=== PATIENT | male | born 1935 | race Caucasian/White ===

== ENCOUNTER 2017-08-23 16:13 | Emergency (ER) | payer MEDICARE ==
[2017-08-23 16:23] VITALS: BP 148/68
--- NOTE | 2017-08-23 17:44 | RAD ---
Indication: Cough, shortness of breath, for ductus cough. 2 views of the chest including dual energy PA views demonstrates no mediastinal shift. Tortuous descending aorta is noted. Pacemaker leads are in place. Lungs are clear. When compared to previous exam of March 07, 2017 no significant change is noted. IMPRESSION: Cardiomegaly. Pacemaker leads in place. No pneumonia is identified.
--- NOTE | 2017-08-23 18:05 | UC ---
Mono Galdamez Nilda, scribed for Chet Lin MD on 08/23/17 at 1641 . Respiratory Complaint HPI - HPI Summary HPI Summary: This patient is an 82 year old M presenting to [facility] [place] accompanied by daughter with a chief complaint of productive cough (galicia to clear currently, initially green) for the past 5-6 days. Symptoms aggravated and alleviated by nothing. Patient reports chest congestion, SOB, sore throat, and mild rhinorrhea. Patient denies edema and CP. On 08/16/17 pt states he had 2 coronary artery stents placed s/p SC. In the past, pt states he has Hx of PNA after having stents placed. Pt notes he currently has 21 stents in his heart. PMHx includes CHF, CAD, SC, and CA. Pt has a pacemaker. He is currently not on abx. - History of Current Complaint Chief Complaint: UCRespiratory Stated Complaint: COUGH Time Seen by Provider: 08/23/17 16:29 Hx Obtained From: Patient Onset/Duration: Sudden Onset, Lasting Weeks - 1 week, Still Present Timing: Constant Pain Intensity: 0 Pain Scale Used: 0-10 Numeric Character: Cough: Productive, Sputum Description: - galicia to clear Aggravating Factors: Nothing Alleviating Factors: Nothing Associated Signs And Symptoms: Negative: Edema - Allergies/Home Medications Allergies/Adverse Reactions: Allergies Allergy/AdvReac Type Severity Reaction Status Date / Time Ezetimibe [From Vytorin] Allergy Unknown Unknown Verified 08/23/17 16:23 Reaction Details Simvastatin [From Vytorin] Allergy Unknown Unknown Verified 08/23/17 16:23 Reaction Details BETA BLOCKERS AdvReac Severe Altered Uncoded 08/23/17 16:23 Mental Status PMH/Surg Hx/FS Hx/Imm Hx Cardiovascular History: Cardiac Disease, Myocardial Infarction, Congestive Heart Failure Respiratory History: Pneumonia Other History Of: Anticoagulant Therapy - Surgical History Surgical History: Yes Surgery Procedure, Year, and Place: 72 YRS AGO TONSILECTOMY, PYONATAL CYST IN SACRAL AREA 50 YRS AGO, QUAD BYPASS 15 YRS, 9 CARDIAC STENTS MOST RECENT 2011, , CARCINOMA FACIAL, VARIOUS DENTAL WORK, ENDOSCOPY BIOPSY FOR LYMPHNODES, . MULTIPLE BONE MARROW BIOPSIES. Coronary artery stents 2017 - Family History Known Family History: Positive: None - noncontributory - Social History Occupation: Retired Alcohol Use: None Substance Use Type: None Smoking Status (MU): Never Smoked Tobacco - Immunization History Most Recent Influenza Vaccination: 2017 Most Recent Tetanus Shot: unknown Most Recent Pneumonia Vaccination: 2017 Review of Systems ENT: Sore Throat, Nasal Discharge Respiratory: Shortness Of Breath, Cough, Other - chest congestion Cardiovascular: Other - negative CP Musculoskeletal: Other: - negative edema All Other Systems Reviewed And Are Negative: Yes Physical Exam Triage Information Reviewed: Yes Vital Signs: Initial Vital Signs Temp 97.5 F 08/23/17 16:15 Pulse 80 08/23/17 16:15 Resp 14 08/23/17 16:15 BP 148/68 08/23/17 16:15 Pulse Ox 98 08/23/17 16:15 Vital Signs Reviewed: Yes - Additional Comments General: well-appearing, no pain distress Skin: warm, color reflects adequate perfusion, dry Head: normal Eyes: EOMI, DAE ENT: normal Neck: supple, nontender Respiratory: CTA, breath sounds present Cardiovascular: RRR Abdomen: soft, nontender Bowel: present Musculoskeletal: normal, strength/ROM intact Neurological: normal, sensory/motor intact, A&O x3 Psychological: affect/mood appropriate Diagnostic Evaluation - Laboratory O2 Sat by Pulse Oximetry: 98 - Radiology Radiology Interpretation Completed By: Radiologist - CXR, per radiologist, reveals cardiomegaly. Pacemaker leads in place. No pneumonia identified. Dr. Lin has reviewed this radiology report. Respiratory Course/Dx - Course Course Of Treatment: Allergies noted. Medications reviewed. BP noted and advised to follow up with PCP. CXR, per radiologist, reveals cardiomegaly. Pacemaker leads in place. No pneumonia identified. Dr. Lin has reviewed this radiology report and agrees. PATIENT DENIES CHEST PAIN. DENIES THAT THESE SX ARE HEART RELATED AND DECLINES EKG. DISCUSSED GETTING FURTHER CARE IN THE ED IF NOT IMPROVED OR WORSE. F/U PMD; GO TO ED IF WORSE. - Differential Dx/Diagnosis Provider Diagnoses: BRONCHITIS. Elevated blood pressure without history of hypertension. Discharge - Discharge Plan Condition: Stable Disposition: HOME Prescriptions: Azithromyxin QUANG (NF) [Z-Quang (Zithromax) 250 mg tabs #6] 2 tab PO .TODAY, THEN 1 DAILY #6 tab Patient Education Materials: Acute Bronchitis (ED) Referrals: Steve Cedeño MD [Primary Care Provider] - Additional Instructions: Your blood pressure was elevated during todays visit; please follow up with your primary care provider within a week for further evaluation. FOLLOW UP WITH YOUR DOCTOR. GO TO THE EMERGENCY DEPARTMENT FOR ANY WORSENING OF YOUR CONDITION; CHEST PAIN, SHORTNESS OF BREATH, YOU FEEL ILL OR QUESTIONS OR CONCERNS. The documentation as recorded by the Mono altamirano Nilda accurately reflects the service I personally performed and the decisions made by me, Chet Lin MD.
== END 2017-08-23 17:40 | disposition home or self-care (01) ==
LOC: UCEAST 16:13
DX: J40 Bronchitis, not specified as acute or chronic (principal); R03.0 Elevated blood-pressure reading, without diagnosis of hypertension; Z88.8 Allergy status to other drugs, medicaments and biological substances; Z87.01 Personal history of pneumonia (recurrent)
CPT/HCPCS: 71046; 99212; G0463

== ENCOUNTER 2017-10-14 00:31 | Inpatient (IN) | payer MEDICARE ==
[2017-10-14] MEDS ORDERED: Morphine INJ* 4 MG/ML 1 ML SYRINGE (NEW SYRINGE VERSION) ONE (00:46)
[2017-10-14] MEDS ORDERED: Ondansetron INJ* 2 MG/ML VIAL ONE (00:47)
[2017-10-14] MEDS ORDERED: Ondansetron INJ* 2 MG/ML VIAL IV ONE (00:47)
[2017-10-14] MEDS ORDERED: Morphine INJ* 4 MG/ML 1 ML SYRINGE (NEW SYRINGE VERSION) IV ONE ×3 (00:47→01:14)
[2017-10-14 01:03] LABS: ABS Basophils 0 10^3/ul (0-0.2); ABS Eosinophils 0.3 10^3/ul (0-0.6); ABS Lymphocytes 4.8 10^3/ul (1.0-4.8); ABS Monocytes 1.1 10^3/ul (0-0.8); ABS Neutrophils 4.5 10^3/ul (1.5-7.7); ABS Nucleated RBC 0 10^3/ul; Eosinophil % 3.1 % (0-6); Hematocrit 50 % (42-52); Hemoglobin 16.6 g/dl (14.0-18.0); Lymphocyte % 44.6 % (25-47); Mean Corpuscular HGB Conc 33 g/dl (31-36); Mean Corpuscular Hemoglobin 30 pg (27-31); Mean Corpuscular Volume 89 fL (80-94); Mean Platelet Volume 9 um3 (7.4-10.4); Nucleated Red Blood Cells % 0.1; Platelet Count 243 10^3/ul (150-450); Red Blood Count 5.59 10^6/ul (4.0-5.4); Red Cell Distribution Width 17 % (10.5-15); White Blood Count 10.7 10^3/ul (3.5-10.8)
[2017-10-14 01:12] LABS: INR 0.87 (0.77-1.02)
[2017-10-14 01:15] LABS: EGFR Non-African American 31.4 (>60)
--- NOTE | 2017-10-14 01:51 | ED ---
Cailin Galdamez Gabriel, scribed for Alexandr Wick MD on 10/14/17 at 0053 . HPI Chest Pain - HPI Summary HPI Summary: This patient is a 82 year old M presenting to [facility] [place] accompanied by his with a chief complaint of CP that began 45 minutes ago. The patient rates the pain 10/10 in severity and radiating into his right shoulder. Patient reports nausea. Patient denies diaphoresis. Pt has had multiple MIs and states this feels like one. Last WA was 2 months ago. He took NTG and ASA MILLWRIGHT. Has pacer. - History of Current Complaint Chief Complaint: EDChestPainROMI Time Seen by Provider: 10/14/17 00:34 Hx Obtained From: Patient Onset/Duration: Still Present Timing: Constant Initial Severity: Moderate Current Severity: Moderate Pain Intensity: 5 Pain Scale Used: 0-10 Numeric Chest Pain Location: Mid Sternal Chest Pain Radiates: Yes Chest Pain Radiates To:: Shoulder Associated Signs and Symptoms: Positive: Negative - diaphoresis, Other: - nausea - Additional Pertinent History Primary Care Physician: GUME - Allergy/Home Medications Allergies/Adverse Reactions: Allergies Allergy/AdvReac Type Severity Reaction Status Date / Time ezetimibe [From Vytorin] Allergy Unknown Verified 10/14/17 01:42 Reaction Details simvastatin [From Vytorin] Allergy Unknown Verified 10/14/17 01:42 Reaction Details BETA BLOCKERS AdvReac Severe Altered Uncoded 08/23/17 16:23 Mental Status PMH/Surg Hx/FS Hx/Imm Hx Endocrine/Hematology History: Reports: Hx Anticoagulant Therapy, Hx Blood Disorders - lymphoma, Hx Blood Transfusions Denies: Hx Diabetes Comment Only: Other Endocrine/Hematological Disorders - polycythemia Cardiovascular History: Reports: Hx Angina, Hx Angioplasty, Hx Auto Implanted Cardiovert Defib, Hx Congestive Heart Failure, Hx Coronary Artery Disease, Hx Hypercholesterolemia, Hx Hypertension, Hx Myocardial Infarction, Hx Pacemaker/ ICD - 2011, Other Cardiovascular Problems/Disorders - LYMPHOMA Denies: Hx Valvular Heart Disease Respiratory History: Reports: Hx Pneumonia, Hx Sleep Apnea Denies: Hx Chronic Obstructive Pulmonary Disease (COPD) Comment Only: Hx Asthma - lymphoma x 22 yrs History: Reports: Hx Acute Renal Failure Denies: Hx Kidney Stones Musculoskeletal History: Reports: Hx Gout, Other Musculoskeletal History - AFTER STENT 4 YRS AGO HE DEVELOPED SEPTOCEMIA AND A PELVIC ABSCESS Denies: Hx Arthritis, Hx Osteoporosis Sensory History: Reports: Hx Contacts or Glasses Denies: Hx Eye Prosthesis, Hx Glaucoma, Hx Legally Blind, Hx Macular Degeneration, Hx Hearing Aid, Hx Hearing Problem Opthamlomology History: Reports: Hx Contacts or Glasses Denies: Hx Eye Prosthesis, Hx Glaucoma, Hx Legally Blind, Hx Macular Degeneration Neurological History: Reports: Other Neuro Impairments/Disorders - Tremors Psychiatric History: Reports: Hx Depression Denies: Hx Panic Disorder - Cancer History Cancer Type, Location and Year: Lymphoma (2) Hx Chemotherapy: Yes - Surgical History Surgery Procedure, Year, and Place: 70 YRS AGO TONSILECTOMY, PYONATAL CYST IN SACRAL AREA 50 YRS AGO, QUAD BYPASS 15 YRS, 9 CARDIAC STENTS MOST RECENT 2011, , CARCINOMA FACIAL, VARIOUS DENTAL WORK, ENDOSCOPY BIOPSY FOR LYMPHNODES, . MULTIPLE BONE MARROW BIOPSIES. Coronary artery stents 2018 Hx Anesthesia Reactions: No - Immunization History Date of Tetanus Vaccine: up to date Date of Influenza Vaccine: Fall 2012 Infectious Disease History: No Infectious Disease History: Reports: Hx Shingles, History Other Infectious Disease Denies: Hx Clostridium Difficile, Hx Hepatitis, Hx Human Immunodeficiency Virus (HIV), Hx Tuberculosis, Hx Known/Suspected VRE, Hx Known/Suspected VRSA, Traveled Outside the [place] in Last 30 Days - Family History Known Family History: Positive: None - noncontributory - Social History Alcohol Use: None Substance Use Type: Reports: None Hx Tobacco Use: No Smoking Status (MU): Never Smoked Tobacco Review of Systems Negative: Skin Diaphoresis Positive: Chest Pain Positive: Nausea All Other Systems Reviewed And Are Negative: Yes Physical Exam - Summary Physical Exam Summary: VITAL SIGNS: Reviewed. GENERAL: Patient is a well-developed and nourished male who is lying anxious in the stretcher. Patient is not in any acute respiratory distress. HEAD AND FACE: No signs of trauma. No ecchymosis, hematomas or skull depressions. No sinus tenderness. EYES: PERRLA, EOMI x 2, No injected conjunctiva, no nystagmus. EARS: Hearing grossly intact. Ear canals and tympanic membranes are within normal limits. MOUTH: Oropharynx within normal limits. NECK: Supple, trachea is midline, no adenopathy, no JVD, no carotid bruit, no c- spine tenderness, neck with full ROM. CHEST: Symmetric, no tenderness at palpation LUNGS: Clear to auscultation bilaterally. No wheezing or crackles. CVS: Regular rate and rhythm, S1 and S2 present, no murmurs or gallops appreciated. ABDOMEN: Soft, non-tender. ABD is distended No rebound no guarding, and no masses palpated. Bowel sounds are normal. EXTREMITIES: FROM in all major joints, no edema, no cyanosis or clubbing. NEURO: Alert and oriented x 3. No acute neurological deficits. Speech is normal and follows commands. SKIN: Dry and warm Triage Information Reviewed: Yes Vital Signs On Initial Exam: Initial Vitals Temp Pulse Resp BP Pulse Ox 97.4 F 42 18 152/90 99 10/14/17 00:35 10/14/17 00:35 10/14/17 00:35 10/14/17 00:35 10/14/17 00:35 Vital Signs Reviewed: Yes Diagnostics - Vital Signs Vital Signs Temp Pulse Resp BP Pulse Ox 10/14/17 00:49 16 10/14/17 00:35 97.4 F 42 18 152/90 99 - Laboratory Result Diagrams: 10/14/17 00:37 10/14/17 00:37 Lab Statement: Any lab studies that have been ordered have been reviewed, and results considered in the medical decision making process. - Radiology CXR Radiology Interpretation Completed By: ED Physician - no acute process - EKG 0042 Cardiac Rate: Other Rate EKG Rhythm: Sinus Rhythm - paced at 72 BPM EKG Interpretation: Paced Chest Pain Course/Dx - Course Assessment/Plan: This patient is a 82 year old M presenting to [facility] accompanied by his with a chief complaint of CP that began 45 minutes ago. The patient rates the pain 10/10 in severity and radiating into his right shoulder. Patient reports nausea. Patient denies diaphoresis. Pt has had multiple MIs and states this feels like one. Last WA was 2 months ago. He took NTG and ASA MILLWRIGHT. Has pacer. An EKG reveals paced at 79 BPM. CXR reveals, no acute process. Test results with no significant abnormalities except for a lactic acid of 2.5. In the ED course the patient was given morphine and zofran. Dx chest pain. We discussed patient care with Dr. Goldberg and they accepted the patient for admission. Patient will be admitted. The patient is agreeable with this plan. - Diagnoses Provider Diagnoses: Chest pain - Provider Notifications Discussed Care Of Patient With: Diana Goldberg Time Discussed With Above Provider: 01:30 Instructed by Provider To: Admit As Inpatient Discharge - Discharge Plan Condition: Fair Disposition: ADMITTED TO [facility] Referrals: Steve Cedeño MD [Primary Care Provider] - The documentation as recorded by the Cailin altamirano Gabriel accurately reflects the service I personally performed and the decisions made by me, Alexandr Wick MD.
[2017-10-14] MEDS ORDERED: Morphine INJ** 4 MG/ML 1 ML CARPUJECT IV PRN (04:12)
--- NOTE | 2017-10-14 07:40 | RAD ---
HISTORY: Chest pain COMPARISONS: August 23, 2017 VIEWS: 1: frontal portable view of the chest at 1:00 AM FINDINGS: LINES AND TUBES: A left-sided AICD pacemaker is noted. CARDIOMEDIASTINAL SILHOUETTE: The cardiac silhouette is enlarged. The cardiomediastinal silhouette is otherwise normal for portable technique. PLEURA: The costophrenic angles are sharp. No pleural abnormalities are noted. LUNG PARENCHYMA: The lungs are clear. ABDOMEN: The upper abdomen is clear. There is no subphrenic gas. BONES AND SOFT TISSUES: Surgical clips are noted in the mediastinum. The patient is status post median sternotomy. IMPRESSION: CARDIOMEGALY
[2017-10-14] MEDS ORDERED: Atorvastatin* 20 MG TAB PO SCH (09:00)
[2017-10-14] MEDS ORDERED: CMCS - Epleronone (NF) 25 MG TAB PO SCH (09:00)
[2017-10-14] MEDS: Nitroglycerin 0.6 MG/HR PATCH* (15 MG) TRANSDERM SCH (09:04)
[2017-10-14] MEDS: Diltiazem CD CAP* 240 MG PO SCH (09:04)
[2017-10-14] MEDS: Clopidogrel TAB* 75 MG PO SCH (09:04)
[2017-10-14] MEDS: Apixaban* 2.5 MG TAB PO SCH ×2 (09:04→20:12)
--- NOTE | 2017-10-14 10:24 | PN ---
Subjective Date of Service: 10/14/17 Interval History: Patient seen and examined at bedside. Denies fever, chills, shortness of breath , chest discomfort (above baseline), N/V/D. Pt states that at baseline he has a slight chest discomfort at all times. Tele: Paced, rate 80's. Few PVCs noted. Family History: Unchanged from Admission Social History: Unchanged from Admission Past Medical History: Unchanged from Admission Objective Active Medications: Apixaban (Eliquis) 2.5 mg PO BID [facility] Atorvastatin Calcium (Lipitor*) 20 mg PO BEDTIME BASHIR Clopidogrel Bisulfate (Plavix Tab*) 75 mg PO DAILY BASHIR Diltiazem HCl (Cardizem Cd Cap*) 120 mg PO BEDTIME BASHIR Diltiazem HCl (Cardizem Cd Cap*) 240 mg PO QAM BASHIR Eplerenone (Inspra (Nf)) 12.5 mg PO Q48H BASHIR Morphine Sulfate (Morphine Inj (Syringe)*) 4 mg IV Q4H PRN Reason: PAIN Nitroglycerin (Nitroglycerin Tab 0.4 Mg*) 0.4 mg SL Q5M PRN Reason: CHEST PAIN Nitroglycerin (Nitroglycerin 15 Mg Patch*) 1 patch TRANSDERM DAILY [facility] Vital Signs - 8 hr 10/14/17 10/14/17 10/14/17 02:30 02:34 07:19 Temperature 97.6 F 97.5 F Pulse Rate 78 81 88 Respiratory 11 18 16 Rate Blood Pressure 153/82 134/92 155/92 (mmHg) O2 Sat by Pulse 97 99 100 Oximetry 10/14/17 08:00 Temperature Pulse Rate Respiratory 16 Rate Blood Pressure (mmHg) O2 Sat by Pulse Oximetry Oxygen Devices in Use Now: None Appearance: NAD, sitting up on the side of the bed Ears/Nose/Mouth/Throat: Mucous Membranes Moist Respiratory: Symmetrical Chest Expansion and Respiratory Effort, Clear to Auscultation Cardiovascular: NL Sounds; No Murmurs; No JVD, RRR Abdominal: NL Sounds; No Tenderness; No Distention Skin: - - 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 - Patient Problems (1) Chest pain Code(s): R07.9 - CHEST PAIN, UNSPECIFIED SNOMED Code(s): 55783829 Comment: - At baseline Pt reports a 2/10 chest discomfort - Pt with significant cardiac history - Troponin 0.03, 0.07, 0.19 - Continue to trend tropionin until peak - Cardiology consult, input appreciated - Plan for chemical nuclear stress test (2) Atrial fibrillation Code(s): I48.91 - UNSPECIFIED ATRIAL FIBRILLATION SNOMED Code(s): 05557826 Comment: - Paced - Continue diltiazem and eliquis (3) CKD (chronic kidney disease) stage 3, GFR 30-59 ml/min Code(s): N18.3 - CHRONIC KIDNEY DISEASE, STAGE 3 (MODERATE) SNOMED Code(s): 550241452 Comment: - Suspect Pt is at baseline (4) HTN (hypertension) Code(s): I10 - ESSENTIAL (PRIMARY) HYPERTENSION SNOMED Code(s): 41738180 Comment: - SBP 130-160's - Continue cardizem (5) Hx of cardiac pacemaker Code(s): Z95.0 - PRESENCE OF CARDIAC PACEMAKER SNOMED Code(s): 967150952 (6) Hx of congestive heart failure Code(s): Z86.79 - PERSONAL HISTORY OF OTHER DISEASES OF THE CIRCULATORY SYSTEM SNOMED Code(s): 125329190 Comment: - History ischemic cardiomyopathy - Strict I+O's and daily weights (7) Hx of coronary artery disease Code(s): Z86.79 - PERSONAL HISTORY OF OTHER DISEASES OF THE CIRCULATORY SYSTEM SNOMED Code(s): 006233604 Comment: - Pt with a beta dayday alergy and not on a beta dayday - Continue statin and plavix (8) Hx of gout Code(s): Z87.39 - PERSONAL HISTORY OF DISEASES OF THE MS SYS AND CONN TISS SNOMED Code(s): 863748221 (9) Hx of peripheral vascular disease Code(s): Z86.79 - PERSONAL HISTORY OF OTHER DISEASES OF THE CIRCULATORY SYSTEM SNOMED Code(s): 523120464 Comment: - Continue plavix (10) Hx of polycythemia vera Code(s): Z86.2 - PRSNL HISTORY OF DIS [facility] BLD[facility] Code(s): 583809725 Comment: - History (11) Lymphoma Comment: - History (12) DVT prophylaxis Code(s): NUD2577 - SNOMED Code(s): 146885949 Comment: - Claraquis (13) DNR (do not resuscitate) Status and Disposition: OBV. Discharge to home when medically stable, possibly in the AM.
[2017-10-14] MEDS ORDERED: Regadenoson* 0.4 MG/5 ML SYRINGE ONE (11:39)
[2017-10-14] MEDS ORDERED: Aminophylline IV* 25 MG/ML 10 ML VIAL ONE (11:39)
--- NOTE | 2017-10-14 14:42 | HP ---
CC: Dr. Cedeño; Dr. Benjamin. HISTORY AND PHYSICAL: DATE OF ADMISSION: 10/14/17 PRIMARY CARE PROVIDER: Dr. Cedeño. SOCIAL ECONOMIST: Dr. Benjamin. CHIEF COMPLAINT: Chest pain. 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 The patient states in general, he is never completely free of chest discomfort. He typically has a pressure sensation that he describes as a 1 or 2/10. He states this evening at approximately 10:30 p.m., he took his nitroglycerin patch off. At approximately 11:30 p.m., he had sudden onset of much worse chest discomfort. Again, this is a pressure sensation. He took a sublingual nitroglycer in and had increased discomfort. Therefore, took a second sublingual nitroglycerin, continued to hav e increased discomfort, took a baby aspirin and sat down and rested for a little bit of time, however , as the pain did not subside and in fact, continued to worsen, he decided to present to the emergenc y room for evaluation. He does state that the discomfort also radiated down his left arm and he had associated nausea. Typically, the patient will walk 1/2 to 1 mile daily for cardiac rehab. He has be en doing this without any difficulty after having what sounds to be an NH that was aborted relatively quickly with stent placement in August 2017 while visiting his daughter in [facility]. He st ates at that time, he had awakened from sleep with very severe chest pain, had vomiting, went to the emergency room was found to have coronary artery disease requiring stenting. He had 2 stents placed to his LAD. He states in general, he has been feeling decent since then. PAST MEDICAL HISTORY: 1. Coronary artery disease status post CABG approximately 20 years ago and [place] bsequently 21 stent insertions. 2. AFib. 3. Gout. 4. Peripheral vascular disease. 5. Polycythemia vera. 6. Lymphoma x2. 7. Hypertension. 8. Ischemic cardiomyopathy. 9. Stage 3 chronic kidney disease. PAST SURGICAL HISTORY: Permanent pacemaker insertion. ALLERGIES: VYTORIN and BETA BLOCKERS. FAMILY HISTORY: Mom at the age of 96 with dementia; Dad is , he had coronary disease. The patient has 2 brothers, one of which is with coronary disease, the other is living. He has had a protracted course of requiring numerous stents and bypass surgery. SOCIAL HISTORY: The patient is a nonsmoker. He drinks alcohol rarely. 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 He is . He had 4 children. A son this past summer, he had throat cancer. REVIEW OF SYSTEMS: A complete 11-system review of systems is obtained. Pertinent positive and negat trey are as per HPI and otherwise negative. PHYSICAL EXAMINATION GENERAL: The patient is a well-developed elderly male, sitting at the stretcher, in no acute distres s. VITAL SIGNS: Blood pressure 143/78, pulse 76, respirations 16, temp 97.4, O2 sat 99% on 2 L. HEENT: Pupils are equal and round. Extraocular muscles are intact. Oropharynx is clear. Oral muco sa is moist. The patient wears dentures. There is no submandibular, cervical or supraclavicular adair nopathy. Thyroid is not enlarged. No thyroid nodules are noted. PULMONARY: Lungs are clear to auscultation bilaterally. CARDIAC: Normal S1 and S2. Regular rate and rhythm. I do not appreciate any murmurs. There is tra ce bilateral lower extremity pitting edema. ABDOMEN: Bowel sounds are present. Abdomen is soft, nontender, nondistended. MUSCULOSKELETAL: There is no cyanosis or clubbing of the digits. There is full active range of nathaly on of all 4 extremities. NEURO: Cranial nerves II through XII are grossly intact. Sensation is intact to light touch through out. Strength is 5/5 and symmetric, both upper and lower extremities bilaterally. SKIN: Warm and dry. There are no rashes. The patient does have approximately a 1 x 1 x 1 cm ulcera [place] lesion on the lobe of the left ear. This is consistent with his non squamous cell carcinoma. 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 PSYCH: The patient is alert. He is oriented x3. Affect appears appropriate. DIAGNOSTIC STUDIES/LAB DATA: WBC 10.7, hemoglobin 16.6, hematocrit 50, platelets 243,000. INR is 0 .87. Sodium 136, potassium 3.9, chloride 98, CO2 26, BUN 42, creatinine 2.05, glucose 156, lactic ac id 2.5, calcium 9.9, magnesium 2.4. Bilirubin 0.7, AST 20, ALT 15, alk phos 65. Troponin 0.03. BNP 287. Albumin 4.4. EKG reveals an AV paced rhythm. Chest x-ray to my evaluation reveals enlarged cardiac silhouette, otherwise lungs are clear. 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 1. Given the patient's extensive cardiac history, he will be admitted to be ruled out for acute autumn nary syndrome. The patient's initial troponin is normal at 0.03. Follow up troponin will be obtained at 0400 and again at 0700. I will not repeat EKGs as he is in a paced rhythm. Before proceeding wi th stress test or further cardiac catheterization, Cardiology consultation, I believe should be reque sted given his very complicated medical history. The patient did just see Dr. Benjamin in the clinic a pproximately 2 weeks ago. At that time, he was doing quite well. He will continue on his Crestor an d Plavix. 2. Ischemic cardiomyopathy. The patient is slightly edematous in his lower extremities. He states that it is a little bit more than his baseline. He did take some torsemide last week at the recommen dation of Dr. Benjamin. He states he dropped approximately 3 pounds. We will monitor his fluid status . 3. Atrial fibrillation. The patient is paced. We will continue diltiazem CD 240 mg q. a.m. and 120 mg p.o. q. p.m. as well as Eliquis 2.5 mg twice daily. 4. Hypertension. Dr. Lou's blood pressure is moderately elevated at this point. For now, I naya l monitor this. However, if his blood pressure remains elevated an adjustment may be necessary in hi s antihypertensive regimen. 5. DVT prophylaxis. According to the Adult Thrombosis Prophylaxis Risk Factor Assessment Guide, the patient has a total risk factor score of 5 making him high risk. He is already on Eliquis and this will act as his DVT prophylaxis. 6. Code status. The patient states that this is a difficult decision for him. He states that he wo uld not want to be intubated if cardiac resuscitation got to that point, however, he is aware that hi s 's wishes are that all resuscitation efforts be performed. He states that he believes she woul d be quite upset, if resuscitation was not performed. At this point, the patient is agreeing to full code to the point of potentially needing intubation. At that point, we will have to discuss with th e patient's what to do further. TIME SPENT: 65 minutes was spent admitting this patient. [id number]/[facility] #: [id number]
[2017-10-14] MEDS: Atorvastatin* 20 MG TAB PO SCH (20:12)
[2017-10-14] MEDS ORDERED: Diltiazem CD CAP* 120 MG PO SCH (21:00)
--- NOTE | 2017-10-14 22:59 | CONS ---
CC: Dr. Benjamin; Dr. Cedeño * CARDIOLOGY CONSULTATION REPORT: DATE OF CONSULT: 10/14/17 INDICATION FOR CONSULT: Acute coronary syndrome. HISTORY OF PRESENT ILLNESS: The patient is an 82-year-old gentleman with an extensive history of ischemic cardiomyopathy. The patient has had coronary bypass surgery. He has had multiple stents put in, at least 20 stents put in. His last stent implantation was on 08/18/17, this was an acute coronary syndrome , down in [facility]. He went to [facility]. At that time, a cardiac catheterization demonstrated the GOMEZ to his LAD was open and patent. He had diffuse disease to his distal LAD. His [place] right coronary artery had multiple stents. He had in-stent restenosis both to the mid RCA stent and to the PDA stent. His saphenous vein grafts were not injected as they were known to be occluded. His circumflex artery was occluded in mid vessel with OM1 and OM2 partially filling from collaterals. At that time , he had 2 stents placed to his right coronary artery. He had a 2.5 x 18 mm Resolute stent to his PDA and a 3 mm x 22 mm Resolute stent to his mid right coronary artery. The patient was doing well up until Friday when he had onset of chest discomfort. He took a nitroglycerin and had no relief of his discomfort. He had a second nitroglycerin and again his discomfort did not relieve and at that time he decided to come to the emergency room. On arrival to the emergency room, the patient got more sublingual nitroglycerin and morphine and ultimately became pain free. The patient's EKG shows normal sinus rhythm and ventricularly paced. Thus for his coronary status as initial troponin level was 0.07. There is peak troponin at 0.25. In speaking with the patient today, he is pain free. PAST MEDICAL HISTORY: Significant for ischemic cardiomyopathy, history of coronary bypass surgery, multiple stents, history of pacemaker implantation, subsequently upgraded to an ICD. OUTPATIENT MEDICATIONS: 1. Crestor 10 mg a day. 2. Eplerenone 12.5 mg a day. 3. Nitroglycerin patch 0.6 mg an hour every 12 hours. 4. Cardizem CD 120 mg 2 tablets in the morning and 1 tablet at night. 5. Plavix 75 mg a day. 6. Demadex 10 mg a day. 7. Eliquis 2.5 mg b.i.d. ALLERGIES: He is intolerant of beta blockers, Vytorin, Zetia, Colace, and lisinopril. 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 He denies tobacco or alcohol use. PHYSICAL EXAM: Height is 5 feet 8 inches, weight is 184 pounds. Temperature 97.4, heart rate 76, respiratory rate is 16, oxygen saturation 99% on room air, blood pressure 134/92. Sclerae anicteric. Oropharynx is pink without erythema. Carotids are 2+ without bruits. JVD is normal. Thyroid is normal. Cardiac Exam: S1, S2 without any murmurs, rubs, or gallops. PMI is difficult to assess. Lungs are clear to auscultation bilaterally. There is no dullness to percussion. Abdomen is soft, nontender, nondistended with normoactive bowel sounds. Extremities show no edema. He has 2+ pulses throughout. The patient is awake, alert, and oriented. He moves all 4 extremities equally. DIAGNOSTIC STUDIES/LAB DATA: Chemistries within normal limits. BUN 42, creatinine 2.5, which is about at his baseline. AST and ALT are normal. Troponin as described above. CBC: White count 10.5, hemoglobin 16, hematocrit 50, platelet count 243. EKG shows normal sinus rhythm, ventricularly paced. IMPRESSION AND PLAN: This is an 82-year-old gentleman with an extensive cardiac history, who came to the hospital because of chest pain that was not relieved with sublingual nitroglycerin. Ultimately, in the emergency room, he had sublingual nitroglycerin and morphine and became pain free. The patient does show a mild elevation of troponin level at 0.25. For now, I think the patient should continue on his medications. The patient is already on maximum medications. The patient is on aspirin and Plavix. The patient will undergo a chemical nuclear stress test to see if there are any obvious areas of ischemia that correlates with his known coronary anatomy. Otherwise, the patient will continue to follow up as an outpatient with Dr. Benjamin. Further recommendations pending results of the stress test. [id number]/[facility] #: [id number] [facility]ENTERFer
[2017-10-15] MEDS: Nitroglycerin TAB 0.4 MG* 0.4 MG TAB SL PRN ×3 (06:18→21:21)
[2017-10-15] MEDS: Diltiazem CD CAP* 240 MG PO SCH (08:32)
[2017-10-15] MEDS: Nitroglycerin 0.6 MG/HR PATCH* (15 MG) TRANSDERM SCH (08:32)
[2017-10-15] MEDS: Apixaban* 2.5 MG TAB PO SCH ×2 (08:32→20:55)
[2017-10-15] MEDS: Clopidogrel TAB* 75 MG PO SCH (08:32)
[2017-10-15] MEDS ORDERED: CMCS - Epleronone (NF) 25 MG TAB PO SCH (09:00)
--- NOTE | 2017-10-15 10:27 | RAD ---
Edited for charges. INDICATION: Chest pain. Elevated troponin. Prior angioplasty. COMPARISON: October 05, 2013 TECHNIQUE: October 15, 2017, 25.980 mCi of Tc-99m Myoview were administered IV. SPECT images of the heart were obtained. No gated images could be obtained at rest due to arrhythmia. October 14, 2017. Under the direction of Dr. Benjamin, the patient was given an IV injection of a pharmacologic stress agent. Subsequently, the patient was given an IV injection of 25.710 mCi Tc-99m Myoview. SPECT images of the heart were obtained and a gated wall motion study was performed. FINDINGS: Gated wall motion images were obtained at stress and demonstrate global marked hypokinesia. The calculated left ventricular ejection fraction is 25 % at stress. Estimated LEFT ventricular end diastolic volume is 158 mL at stress. TID 0.95. Predominant fixed perfusion defect centered at the lateral wall extending from the apex to the base with less marked involvement of the anterior wall. The stress defect is larger than the rest defect consistent with a small surrounding penumbra of stress- induced ischemia. IMPRESSION: 1. Large lateral and anterior wall infarct significantly enlarged over the 2014 exam with small surrounding penumbra of ischemia. 2. Severe global hypokinesia and markedly abnormal estimated LEFT ventricular ejection fraction of 25% with interval worsening. Dilated LEFT ventricle with interval worsening. ASSESSMENT: High risk based on nuclear portion. Based on imaging criteria from ACC/AHA 2002 Guideline Update for the Management of Patients With Chronic Stable Angina Table 23. Noninvasive Risk Stratification. MTDD
[2017-10-15 11:21] LABS: EGFR Non-African American 31.1 (>60)
--- NOTE | 2017-10-15 13:25 | PN ---
Subjective Date of Service: 10/15/17 Interval History: Patient seen and examined at bedside. Denies fever, chills, shortness of breath , N/V/D. Pt states that at baseline he has a mild upper sternal chest discomfort. Earlier today at ~ 0930 he reports a right upper chest discomfort that radiated to his right shoulder, he states this is similar to the pain the caused in to present to the hospital and similar to the pain he has prior to his last stenting in 08/2017, except today's pain was not as significant as then. Tele: Paced, rate 80-90's. Pt noted to have 2 episodes of v tach today, 1 ~ 0844 (this was ~ 4 beats) and another that was ~ 24 beats around 1030. Family History: Unchanged from Admission Social History: Unchanged from Admission Past Medical History: Unchanged from Admission Objective Active Medications: Apixaban (Eliquis) 2.5 mg PO BID BASHIR Atorvastatin Calcium (Lipitor*) 20 mg PO BEDTIME BASHIR Clopidogrel Bisulfate (Plavix Tab*) 75 mg PO DAILY BASHIR Diltiazem HCl (Cardizem Cd Cap*) 120 mg PO BEDTIME BASHIR Diltiazem HCl (Cardizem Cd Cap*) 240 mg PO QAM BASHIR Eplerenone (Inspra (Nf)) 12.5 mg PO Q48H BASHIR Morphine Sulfate (Morphine Inj (Syringe)*) 4 mg IV Q4H PRN Reason: PAIN Nitroglycerin (Nitroglycerin Tab 0.4 Mg*) 0.4 mg SL Q5M PRN Reason: CHEST PAIN Nitroglycerin (Nitroglycerin 15 Mg Patch*) 1 patch TRANSDERM DAILY [facility] Vital Signs - 8 hr 10/15/17 10/15/17 10/15/17 07:26 11:07 11:49 Temperature 97.9 F 98.1 F 97.5 F Pulse Rate 91 88 95 Respiratory 16 18 16 Rate Blood Pressure 144/83 147/89 137/81 (mmHg) O2 Sat by Pulse 100 95 97 Oximetry Oxygen Devices in Use Now: None Appearance: NAD, sitting up in a chair Ears/Nose/Mouth/Throat: Mucous Membranes Moist Respiratory: Symmetrical Chest Expansion and Respiratory Effort, Clear to Auscultation Cardiovascular: NL Sounds; No Murmurs; No JVD, RRR Abdominal: NL Sounds; No Tenderness; No Distention Extremities: No Edema Skin: - - SC ca to left ear lobe, sutures intact and open to air left upper ear lobe and sc ca lesion to left forearm Neurological: Alert and Oriented x 3, NL Muscle Strength and Tone Lines/Tubes/Other Access: Clean, Dry and Intact Peripheral IV - site benign Nutrition: Taking PO's Result Diagrams: 10/14/17 00:37 10/15/17 10:57 Additional Lab and Data: Laboratory Tests 10/14/17 10/14/17 10/14/17 00:37 04:00 07:16 Troponin I 0.03 0.07 H* 0.19 H* Laboratory Tests 10/14/17 10/14/17 10:28 13:44 Troponin I 0.25 H* 0.22 H* Diagnostic Imagin10/16/17 NM MYOCARDIAL MULTI RESTING IMPRESSION: 1. Large lateral and anterior wall infarct significantly enlarged over the 2014 exam with small surrounding penumbra of ischemia. 2. Severe global hypokinesia and markedly abnormal estimated LEFT ventricular ejection fraction of 25% with interval worsening. Dilated LEFT ventricle with interval worsening. ASSESSMENT: High risk based on nuclear portion. Based on imaging criteria from ACC/AHA 2002 Guideline Update for the Management of Patients With Chronic Stable Angina Table 23. Noninvasive Risk Stratification. 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 - Patient Problems (1) Chest pain Code(s): R07.9 - CHEST PAIN, UNSPECIFIED SNOMED Code(s): 60602256 Comment: - At baseline Pt reports a 2/10 chest discomfort - Pt with another episode of chest pain this AM and v tach - Pt with significant cardiac history - Troponin 0.03, 0.07, 0.19, 0.25, 0.22 - Cardiology consult, input appreciated - S/P chemical nuclear stress test (2) Atrial fibrillation Code(s): I48.91 - UNSPECIFIED ATRIAL FIBRILLATION SNOMED Code(s): 82938237 Comment: - Paced - Continue diltiazem and eliquis (3) CKD (chronic kidney disease) stage 3, GFR 30-59 ml/min Code(s): N18.3 - CHRONIC KIDNEY DISEASE, STAGE 3 (MODERATE) SNOMED Code(s): 242174449 Comment: - Suspect Pt is at baseline (4) HTN (hypertension) Code(s): I10 - ESSENTIAL (PRIMARY) HYPERTENSION SNOMED Code(s): 38348953 Comment: - SBP 120-140's - Continue cardizem (5) Hx of cardiac pacemaker Code(s): Z95.0 - PRESENCE OF CARDIAC PACEMAKER SNOMED Code(s): 315718347 Comment: - ICD (6) Hx of congestive heart failure Code(s): Z86.79 - PERSONAL HISTORY OF OTHER DISEASES OF THE CIRCULATORY SYSTEM SNOMED Code(s): 463095690 Comment: - History ischemic cardiomyopathy - Strict I+O's and daily weights (7) Hx of coronary artery disease Code(s): Z86.79 - PERSONAL HISTORY OF OTHER DISEASES OF THE CIRCULATORY SYSTEM SNOMED Code(s): 106008321 Comment: - Pt with a beta dayday intolerance and not on a beta dayday - Continue statin and plavix (8) Hx of gout Code(s): Z87.39 - PERSONAL HISTORY OF DISEASES OF THE MS SYS AND CONN TISS SNOMED Code(s): 141071345 (9) Hx of peripheral vascular disease Code(s): Z86.79 - PERSONAL HISTORY OF OTHER DISEASES OF THE CIRCULATORY SYSTEM SNOMED Code(s): 805034083 Comment: - Continue plavix (10) Hx of polycythemia vera Code(s): Z86.2 - PRSNL HISTORY OF DIS OF THE BLD/BLD-FORM ORG[facility]IM[facility] Code(s): 736045557 Comment: - History (11) Lymphoma Comment: - History (12) DVT prophylaxis Code(s): ZRJ0935 - SNOMED Code(s): 112316330 Comment: - Eliquis (13) DNR (do not resuscitate) Status and Disposition: OBV to Inpatient. Discharge to home when medically stable, possibly in the AM..
--- NOTE | 2017-10-15 15:44 | PN ---
Subjective Date of Service: 10/15/17 - CC: anginal chest pain. Interval History: The patient had chest pain this morning shortly after waking up, at rest. Not as strong as what brought him in. No orthopnea, PND and no coughing. Medications Active Medications: Amlodipine Besylate (Norvasc Tab*) 5 mg PO DAILY [facility] Apixaban (Eliquis) 2.5 mg PO BID [facility] Last Admin: 10/15/17 08:32 Dose: 2.5 mg Atorvastatin Calcium (Lipitor*) 20 mg PO BEDTIME [facility] PRN Reason: Protocol Last Admin: 10/14/17 20:12 Dose: 20 mg Bisoprolol Fumarate (Zebeta Tab*) 5 mg PO Q24H [facility] Clopidogrel Bisulfate (Plavix Tab*) 75 mg PO DAILY [facility] Last Admin: 10/15/17 08:32 Dose: 75 mg Diltiazem HCl (Cardizem Cd Cap*) 240 mg PO QAM [facility] Last Admin: 10/15/17 08:32 Dose: 240 mg Eplerenone (Inspra (Nf)) 12.5 mg PO Q48H [facility] PRN Reason: Protocol Last Admin: 10/15/17 08:32 Dose: 12.5 mg Morphine Sulfate (Morphine Inj (Syringe)*) 4 mg IV Q4H PRN PRN Reason: PAIN Nitroglycerin (Nitroglycerin Tab 0.4 Mg*) 0.4 mg SL Q5M PRN PRN Reason: CHEST PAIN Last Admin: 10/15/17 09:27 Dose: 0.4 mg Nitroglycerin (Nitroglycerin 15 Mg Patch*) 1 patch TRANSDERM 0730 [facility] Pharmacy Profile Note (Nitro Patch/Oint Remove*) 1 note PATCH OFF 1929 [facility] Objective Vital Signs: Temp Pulse Resp BP Pulse Ox 97.5 F 95 16 137/81 97 10/15/17 11:49 10/15/17 11:49 10/15/17 11:49 10/15/17 11:49 10/15/17 11:49 Vital Signs 10/14/17 10/14/17 10/15/17 19:14 23:50 03:37 Temperature 97.1 F 98.9 F 98.7 F Pulse Rate 78 79 83 Respiratory 16 20 20 Rate Blood Pressure 129/74 125/60 128/74 (mmHg) O2 Sat by Pulse 96 93 99 Oximetry 10/15/17 10/15/17 10/15/17 07:26 11:07 11:49 Temperature 97.9 F 98.1 F 97.5 F Pulse Rate 91 88 95 Respiratory 16 18 16 Rate Blood Pressure 144/83 147/89 137/81 (mmHg) O2 Sat by Pulse 100 95 97 Oximetry Oxygen Devices in Use Now: None Appearance: elderly gentleman, sitting in bed, appears vigourous and comfortable. Eyes: No Scleral Icterus, PERRLA Ears/Nose/Mouth/Throat: Mucous Membranes Moist Neck: NL Appearance and Movements; NL JVP, No Thyroid Enlargement, Masses Respiratory: Symmetrical Chest Expansion and Respiratory Effort, Clear to Auscultation Cardiovascular: RRR - no murmur Abdominal: No Hepatosplenomegaly Extremities: No Edema - warm Skin: No Rash or Ulcers Neurological: Alert and Oriented x 3, NL Muscle Strength and Tone Lines/Tubes/Other Access: Clean, Dry and Intact Peripheral IV Laboratory Results: 10/15/17 10:57 INR (Anticoag Therapy) 0.87 (0.77-1.02) 10/14/17 00:37 APTT 34.2 seconds (26.0-36.3) 10/14/17 00:37 Total Bilirubin 0.70 mg/dL (0.2-1.0) 10/14/17 00:37 AST 20 U/L (13-39) 10/14/17 00:37 ALT 15 U/L (7-52) 10/14/17 00:37 Alkaline Phosphatase 65 U/L (34-104) 10/14/17 00:37 B-Natriuretic Peptide 287 pg/mL (-100) H 10/14/17 00:37 Total Protein 8.1 g/dL (6.4-8.9) 10/14/17 00:37 Albumin 4.4 g/dL (3.2-5.2) 10/14/17 00:37 Globulin 3.7 g/dL (2-4) 10/14/17 00:37 Albumin/Globulin Ratio 1.2 (1-3) 10/14/17 00:37 10/14/17 10/14/17 10/14/17 04:00 07:16 10:28 Troponin I 0.07 H* 0.19 H* 0.25 H* 10/14/17 13:44 Troponin I 0.22 H* Diagnostic Imaging: Nuclear study completed today: Large anterior lateral defect, largely fixed, EF 25%. EKG Data: ICD programming: DDD 50 - 100 bpm. HR 70's, SR, V pacing, V paces 99.6% of the time. 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 His circumlex is occluded and dependent on collateral flow (see Dr. Benjamin's consult for details). The patient presents with angina and a mild bump in troponins, based on nuclear study there is no evidence of ischemia in the distribution of the stents nor in the LAD. The territory not getting flow is in the circumflex distribution. The EF by echo in August and in 2017 by echo was 30-35%. CP/angina: Medical management indicated. Move NTG patch to earlier in AM to prevent AM angina. Long Hx of beta dayday intolerance and has failed metoprolol and Coreg. Trial of Zebeta HS. Cardizem not an optimal drug in low EF's, will try decreasing to 240 mg in AM and replace afternoon cardizem dose with amlodipine. CM: Trial of beta dayday as above. RI has kept him off ACEI /ARB, will not retry as an in patient. HR is above 60 on aggressive rate lowering medication. Consider Corlinor addition as outpatient, not on formulary (5 mg BID)-off label data on use for angina as well and no dose adjustment with CrCl > 15. If PASTRY FINISHER - D was not looked into in the past could consider/re evaluate this option. The patient is ready/accepting of medical management/comfort care/DNR, his who was present, want management to stabilize or improve the patient's cardiac status, she is not ready for a palliative/DNR approach. Note: the patient and his 's son 2017 suddenly.
[2017-10-15] MEDS: amLODIPine TAB* 5 MG PO SCH (17:37)
[2017-10-15] MEDS: Acetaminophen TAB* 325 MG PO PRN (19:16)
[2017-10-15] MEDS ORDERED: Nitro Patch/OINT Remove PATCH OFF SCH (19:30)
[2017-10-15] MEDS: Atorvastatin* 20 MG TAB PO SCH (20:55)
[2017-10-15] MEDS ORDERED: Bisoprolol TAB* 5 MG PO SCH (21:00)
[2017-10-16] MEDS: Acetaminophen TAB* 325 MG PO PRN ×2 (05:10→12:07)
[2017-10-16] MEDS ORDERED: Nitroglycerin 0.6 MG/HR PATCH* (15 MG) TRANSDERM SCH (07:30)
[2017-10-16] MEDS: amLODIPine TAB* 5 MG PO SCH (08:22)
[2017-10-16] MEDS: Apixaban* 2.5 MG TAB PO SCH (08:22)
[2017-10-16] MEDS: Diltiazem CD CAP* 240 MG PO SCH (08:22)
[2017-10-16] MEDS: Clopidogrel TAB* 75 MG PO SCH (08:22)
--- NOTE | 2017-10-16 13:10 | PN ---
Subjective Date of Service: 10/16/17 Interval History: Patient seen and examined at bedside. Denies fever, chills, shortness of breath , chest discomfort (above baseline), N/V/D. Pt states that he is feeling well today. Tele: Paced, rate 80-90's prior to 829 and then 70-80's. Family History: Unchanged from Admission Social History: Unchanged from Admission Past Medical History: Unchanged from Admission Objective Active Medications: Acetaminophen (Tylenol Tab*) 650 mg PO Q6H PRN Reason: PAIN Amlodipine Besylate (Norvasc Tab*) 5 mg PO DAILY [facility] Apixaban (Eliquis) 2.5 mg PO BID BASHIR Atorvastatin Calcium (Lipitor*) 20 mg PO BEDTIME BASHIR Bisoprolol Fumarate (Zebeta Tab*) 5 mg PO Q24H [facility] Clopidogrel Bisulfate (Plavix Tab*) 75 mg PO DAILY [facility] Diltiazem HCl (Cardizem Cd Cap*) 240 mg PO QAM [facility] Eplerenone (Inspra (Nf)) 12.5 mg PO Q48H [facility] Morphine Sulfate (Morphine Inj (Syringe)*) 4 mg IV Q4H PRN Reason: PAIN Nitroglycerin (Nitroglycerin Tab 0.4 Mg*) 0.4 mg SL Q5M PRN Reason: CHEST PAIN Nitroglycerin (Nitroglycerin 15 Mg Patch*) 1 patch TRANSDERM 729 [facility] Pharmacy Profile Note (Nitro Patch/Oint Remove*) 1 note PATCH OFF 1929 [facility] Vital Signs - 8 hr 10/16/17 10/16/17 10/16/17 07:41 08:00 08:11 Temperature 99.8 F Pulse Rate 89 88 Respiratory 16 16 Rate Blood Pressure 132/84 124/78 (mmHg) O2 Sat by Pulse 98 Oximetry Oxygen Devices in Use Now: None Appearance: NAD, sitting up on the side of the bed Ears/Nose/Mouth/Throat: Mucous Membranes Moist Respiratory: Symmetrical Chest Expansion and Respiratory Effort, Clear to Auscultation Cardiovascular: NL Sounds; No Murmurs; No JVD, RRR Abdominal: NL Sounds; No Tenderness; No Distention Extremities: No Edema Skin: - - SC ca lesions to left ear and left forearm. Sutures intact to left ear , open to air Neurological: Alert and Oriented x 3, NL Muscle Strength and Tone Lines/Tubes/Other Access: Clean, Dry and Intact Peripheral IV - site benign Nutrition: Taking PO's Result Diagrams: 10/14/17 00:37 10/15/17 10:57 Additional Lab and Data: Laboratory Tests 10/14/17 10/14/17 10/14/17 00:37 04:00 07:16 Troponin I 0.03 0.07 H* 0.19 H* Laboratory Tests 10/14/17 10/14/17 10:28 13:44 Troponin I 0.25 H* 0.22 H* Diagnostic Imagin10/16/17 NM MYOCARDIAL MULTI RESTING IMPRESSION: 1. Large lateral and anterior wall infarct significantly enlarged over the 2013 exam with small surrounding penumbra of ischemia. 2. Severe global hypokinesia and markedly abnormal estimated LEFT ventricular ejection fraction of 25% with interval worsening. Dilated LEFT ventricle with interval worsening. ASSESSMENT: High risk based on nuclear portion. Based on imaging criteria from ACC/AHA 2002 Guideline Update for the Management of Patients With Chronic Stable Angina Table 23. Noninvasive Risk Stratification. 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 - Patient Problems (1) Chest pain Code(s): R07.9 - CHEST PAIN, UNSPECIFIED SNOMED Code(s): 90457346 Comment: - At baseline Pt reports a 2/10 chest discomfort - No increased chest pain today and short burst of v tach this AM - Pt with significant cardiac history - Troponin 0.03, 0.07, 0.19, 0.25, 0.22, 0.08 - Cardiology consult, input appreciated - S/P chemical nuclear stress test (see report) (2) Atrial fibrillation Code(s): I48.91 - UNSPECIFIED ATRIAL FIBRILLATION SNOMED Code(s): 72988783 Comment: - Paced - Continue diltiazem (decreased) and eliquis (3) CKD (chronic kidney disease) stage 3, GFR 30-59 ml/min Code(s): N18.3 - CHRONIC KIDNEY DISEASE, STAGE 3 (MODERATE) SNOMED Code(s): 866421689 Comment: - Suspect Pt is at baseline (4) HTN (hypertension) Code(s): I10 - ESSENTIAL (PRIMARY) HYPERTENSION SNOMED Code(s): 44730618 Comment: - SBP 120-130's - Continue cardizem (decreased) (5) Hx of cardiac pacemaker Code(s): Z95.0 - PRESENCE OF CARDIAC PACEMAKER SNOMED Code(s): 973066803 Comment: - ICD (6) Hx of congestive heart failure Code(s): Z86.79 - PERSONAL HISTORY OF OTHER DISEASES OF THE CIRCULATORY SYSTEM SNOMED Code(s): 092499075 Comment: - History ischemic cardiomyopathy - Started on Bisoprolol (7) Hx of coronary artery disease Code(s): Z86.79 - PERSONAL HISTORY OF OTHER DISEASES OF THE CIRCULATORY SYSTEM SNOMED Code(s): 018280074 Comment: - Pt with a beta dayday intolerance and not on a beta dayday - Started on Bisoprolol and amlodipine - Continue statin and plavix (8) Hx of gout Code(s): Z87.39 - PERSONAL HISTORY OF DISEASES OF THE MS SYS AND CONN TISS SNOMED Code(s): 719865396 (9) Hx of peripheral vascular disease Code(s): Z86.79 - PERSONAL HISTORY OF OTHER DISEASES OF THE CIRCULATORY SYSTEM SNOMED Code(s): 481497057 Comment: - Continue plavix (10) Hx of polycythemia vera Code(s): Z86.2 - PRSNL HISTORY OF DIS [facility] Code(s): 543236584 Comment: - History (11) Lymphoma Comment: - History (12) DVT prophylaxis Code(s): CDE3338 - SNOMED Code(s): 382352001 Comment: - Eliquis (13) DNR (do not resuscitate) Status and Disposition: Inpatient. Stable for discharge to home today. Attending: Romulo Negrete
[2017-10-16 14:38] VITALS: BP 125/75
--- NOTE | 2017-10-17 14:25 | DS ---
CC: Hardik Benjamin MD; Steve Cedeño MD * DISCHARGE SUMMARY: DATE OF ADMISSION: 10/14/17 DATE OF DISCHARGE: 10/16/17 ATTENDING PHYSICIAN: Romulo Negrete MD * (dictated by Stefanie Morton NP). PRIMARY CARE PROVIDER: Steve Cedeño MD PRIMARY NURSES SUPERINTENDENT: Hardik Benjamin MD PRIMARY DIAGNOSES: 1. Chest pain, suspect secondary to angina. 2. Hypertroponinemia suspect secondary to demand ischemia versus non-ST elevation myocardial infarction. SECONDARY DIAGNOSES: 1. Atrial fibrillation. 2. Chronic kidney disease. 3. Hypertension. 4. Pacemaker with ICD. 5. Ischemic cardiomyopathy. 6. History of coronary artery disease. 7. History of peripheral vascular disease. 8. History of polycythemia vera. 9. History of lymphoma. CONSULTATIONS WHILE IN THE HOSPITAL: Dr. Tami Davis and Dr. David Benjamin with Cardiology. STUDIES WHILE IN THE HOSPITAL: Chest x-ray on 10/14/17. Radiologist's impression: Cardiomegaly. Nuclear cardiac stress test. Radiologist's impression: Large lateral and anterior wall infarct significantly enlarged over 2014 exam with small surrounding penumbra of ischemia. Severe global hypokinesia and markedly abnormal estimated left ventricular ejection fraction of 25% with interval worsening. Dilated left ventricle with interval worsening. Assessment: High risk based on nuclear portion. [employer]'s observation: Patient with CAD admitted with ACS. Baseline EKG: NSR V paced. Lexiscan 0.4 mg was infused over 10 sec. Chest pain: none. Arrhythmia: None. ST changes: none with Lexiscan administration there were no significant hemodynamic changes. [employer]'s conclusion: No Lexiscan myocardial ischemia by EKG criteria. Nuclear portion to be reported separately by Radiology. 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 The patient generally has a discomfort in his right upper chest, but approximately 10 p.m. he took his nitroglycerin patch off. At approximately 11:30 p.m., he noticed sudden onset of a much worse discomfort, again described as a pressure sensation. He took a sublingual nitro and had increased discomfort. Therefore, he took a second nitroglycerin and continued to have increased discomfort, so he took a baby aspirin and sat down and rested for a little bit. When the pain did not subside and in fact worsened, he decided to present to the emergency room for further evaluation. While in the emergency room, he had an EKG showing an AV paced rhythm, a chest x - ray showing cardiomegaly. He had a troponin of 0.03. He had elevated creatinine and BUN which appeared to be his baseline. The hospitalists were asked to evaluate him for admission. During his hospital stay, his troponins were trended peaking at 0.25. He was seen in consultation by Dr. Benjamin with Cardiology who recommended he undergo a nuclear stress test. This resulted in a high risk stress test. He was seen in consultation by Dr. Davis, who recommended decreasing his Cardizem, adjusting his nitroglycerin patch to earlier in the morning as he had had chest pain on the morning of 10/15/17 at awakening in the hospital. He was also started on Zebeta at bedtime. He was found to have a decrease in his EF that previously in August 2016 had been 30% to 35%, was now 25% according to his stress test. Based on his nuclear study, the territory not getting good blood flow was his circumflex distribution. There was some discussion about palliative care with the patient, but his was not present as it is a stressful topic for her and she would like to keep him alive as long as possible and is more interested in quantity of life over quality at this time. She notes the patient lost a son suddenly in 2017. He had no return of chest pain above his baseline and was feeling well. 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 Vital signs are as follows: Temperature 97.3, heart rate 58, respiratory rate 16, O2 sat 98% on room air, blood pressure 125/73. 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 He has been encouraged to take it easy and not continue cardiac rehab until he is seen in followup by Cardiology and they cleared him to return to cardiac rehab. For his angina, he has been started on amlodipine at bedtime and his nitroglycerin patch has been moved to the morning at awakening as this appears to cause angina for him. It was felt that Cardizem was not an optimal drug with him in the setting of his low EF and again this was decreased. He has resumed on his other usual home medications. In regards to his cardiomyopathy, he has been started on a trial of Zebeta. He has had beta-dayday intolerances in the past , but is willing to try a different beta- dayday at this time. His heart rate had been above 60 with aggressive rate lowering medications. During his stay without adjustment to his pacemaker, he decreased his own heart rate pace down into the 70s and 80s. Blood pressures were stable. The patient was also noted to have a few episodes of short bursts of V- tach that resolved on their own. This is a summarized report of a complex medical history and hospital stay. For further details, please see the entire medical record. TIME SPENT: Time for this discharge was approximately 50 minutes, greater than half of that was spent with the patient and daughter discussing discharge plans and instructions. CONDITION ON DISCHARGE: Stable. Reviewed by ADRIEL GUADARRAMA 10/25/17 1209 [id number]/[facility] #: [id number] RAGHAV
== END 2017-10-16 14:20 | disposition home or self-care (01) | DRG 281 ==
LOC: ED 00:31 → MEDTELE 02:20 → OBSVTOIN 10-15 16:19
PROVIDERS: ADMIT Hospitalist; ATTEND Hospitalist
DX: I21.4 Non-ST elevation (NSTEMI) myocardial infarction (principal); I47.2 Ventricular tachycardia; I13.0 Hypertensive heart and chronic kidney disease with heart failure and stage 1 through stage 4 chronic kidney disease, or unspecified chronic kidney disease; M86.9 Osteomyelitis, unspecified; I25.119 Atherosclerotic heart disease of native coronary artery with unspecified angina pectoris; I24.8 Other forms of acute ischemic heart disease; I48.91 Unspecified atrial fibrillation; I50.9 Heart failure, unspecified; I25.5 Ischemic cardiomyopathy; E78.00 Pure hypercholesterolemia, unspecified; D45 Polycythemia vera; C44.629 Squamous cell carcinoma of skin of left upper limb, including shoulder; I25.10 Atherosclerotic heart disease of native coronary artery without angina pectoris; G47.30 Sleep apnea, unspecified; M10.9 Gout, unspecified; F32.9 Major depressive disorder, single episode, unspecified; R25.1 Tremor, unspecified; N18.3 Chronic kidney disease, stage 3 (moderate); I73.9 Peripheral vascular disease, unspecified; H93.8X2 Other specified disorders of left ear; Z66 Do not resuscitate; Z95.5 Presence of coronary angioplasty implant and graft; Z85.828 Personal history of other malignant neoplasm of skin; I25.2 Old myocardial infarction; Z95.0 Presence of cardiac pacemaker; Z95.1 Presence of aortocoronary bypass graft; Z82.49 Family history of ischemic heart disease and other diseases of the circulatory system; Z88.8 Allergy status to other drugs, medicaments and biological substances; Z82.0 Family history of epilepsy and other diseases of the nervous system; Z72.89 Other problems related to lifestyle; Z87.01 Personal history of pneumonia (recurrent); Z86.19 Personal history of other infectious and parasitic diseases; Z85.72 Personal history of non-Hodgkin lymphomas
CPT/HCPCS: 36415; 71045; 78452; 80048; 80053; 83605; 83735; 83880; 84484; 85025; 85610; 85730; 93005; 93017; 99284; A9270-GY; A9502; G0378; J0280; J2270; J2405; J2785

== ENCOUNTER 2017-11-22 13:20 | Inpatient (IN) | payer MEDICARE ==
[2017-11-22] MEDS ORDERED: nitroGLYCERIN DRIP* 25,000 MCG in PREMIX* 0 ML IV ONE ×2 (13:22→14:15)
[2017-11-22] MEDS ORDERED: Acetaminophen TAB* 325 MG PO ONE (13:22)
[2017-11-22] MEDS ORDERED: Heparin for STEMI(*) 5,000 UNITS/ML 1 ML VIAL IV ONE (13:22)
[2017-11-22] MEDS ORDERED: Morphine INJ* 4 MG/ML 1 ML CARPUJECT IV ONE (13:22)
[2017-11-22] MEDS ORDERED: Metoprolol Tartrate IV* 1 MG/ML 5 ML VIAL IV ONE (13:22)
[2017-11-22 14:13] LABS: ABS Basophils 0 10^3/ul (0-0.2); ABS Eosinophils 0.2 10^3/ul (0-0.6); ABS Lymphocytes 2.5 10^3/ul (1.0-4.8); ABS Monocytes 0.6 10^3/ul (0-0.8); ABS Neutrophils 3.6 10^3/ul (1.5-7.7); ABS Nucleated RBC 0 10^3/ul; Eosinophil % 2.2 % (0-6); Hematocrit 46 % (42-52); Hemoglobin 15.4 g/dl (14.0-18.0); Lymphocyte % 36.4 % (25-47); Mean Corpuscular HGB Conc 33 g/dl (31-36); Mean Corpuscular Hemoglobin 29 pg (27-31); Mean Corpuscular Volume 88 fL (80-94); Mean Platelet Volume 8.9 um3 (7.4-10.4); Nucleated Red Blood Cells % 0; Platelet Count 173 10^3/ul (150-450); Red Blood Count 5.29 10^6/ul (4.0-5.4); Red Cell Distribution Width 16 % (10.5-15); White Blood Count 6.9 10^3/ul (3.5-10.8)
[2017-11-22 14:16] LABS: INR 1.2 (0.77-1.02)
[2017-11-22 14:29] LABS: EGFR Non-African American 27.6 (>60)
--- NOTE | 2017-11-22 14:32 | RAD ---
INDICATION: Clinical features of ST elevation myocardial infarction COMPARISON: Most recent comparison chest x-ray is dated October 14, 2017 TECHNIQUE: Single AP portable view of the chest was obtained. FINDINGS: Image quality is compromised due to the relative inferiority of a portable chest x-ray. Postsurgical changes are unchanged from the prior chest x-ray. The heart and mediastinum exhibit normal size and contour. The lungs are grossly clear. There is no evidence of a large pleural effusion. Visualized bones are normal for the patient's age. IMPRESSION: No radiographic evidence for acute cardiopulmonary abnormality on this portable chest x-ray.
[2017-11-22] MEDS ORDERED: Heparin DRIP 25,000 UNITS(*) 25,000 UNITS/500 ML BAG ONE (14:43)
[2017-11-22] MEDS ORDERED: Acetaminophen TAB* 325 MG PO PRN (15:24)
[2017-11-22] MEDS ORDERED: Ondansetron INJ* 2 MG/ML VIAL IV PRN (15:25)
[2017-11-22] MEDS: Heparin DRIP 25,000 UNITS(*) 25,000 UNITS/500 ML BAG IV SCH (15:30)
[2017-11-22] MEDS ORDERED: Morphine INJ* 2 MG/ML 1 ML CARPUJECT IV PRN (15:37)
--- NOTE | 2017-11-22 18:34 | HP ---
CC: Dr. Cedeño; Dr. Benjamin. * HOSPITAL MEDICINE HISTORY AND PHYSICAL: DATE OF ADMISSION: 11/22/17 PRIMARY CARE PHYSICIAN: Dr. Cedeño. CARDIOLOGY: Dr. Benjamin. ATTENDING PHYSICIAN: Tiki Piedra MD * (dictation provided by Laurel Silver NP). CHIEF COMPLAINT: Chest pain. HISTORY OF PRESENT ILLNESS: Mr. Lou is an 82-year-old male with a past medical history of significant coronary artery disease, status post CABG and stents x21 with subsequent ischemic cardiomyopathy and ejection fraction 25%. He also has a history of atrial fibrillation, chronic kidney disease, hypertension, pacemaker ICD, and lymphoma. He was discharged from our hospital last on 10/16/17 after being admitted and evaluated for chest pain. At that time, his troponin peaked at 0.25. He had a nuclear medicine stress test on 02/25 that showed "large lateral and anterior wall infarct significantly enlarged over the 2014 exam with small surrounding number of ischemia, severe global hypokinesis, and markedly abnormal estimated left ventricular ejection fraction of 25%, dilated left ventricle with interval worsening, high risk based on nuclear portion." The patient was evaluated by Dr. Benjamin from Cardiology, and based on the patient's multiple comorbidities and severe advanced coronary artery disease, the plan was for medical management. Since then, the patient has been evaluated by nurse practitioner, Yolanda Mora, at the [facility] on 11/18/17. At that time, the patient was stable. Plans were made to adjust his medications: stop eplerenone, continue Entresto daily, torsemide only prn, decrease bisoprolol due to worsening, discontinue diltiazem, start digoxin 0.125 mg 3 times a week. Mr. Lou presents today with report that this morning he developed a sudden onset of chest discomfort. He normally has about a 2/10 chest pain in all times. This chest pain is worse with activity. Today, he had chest discomfort radiating into his shoulder that was 8/10 and therefore came to the emergency room for evaluation. He denies any nausea, diaphoresis, vomiting. In the emergency room, Mr. Lou had labs that shows troponin was 0.03. His EKG shows an AV paced rhythm and therefore evaluation for ischemia is not possible. His BNP is 848. His BUN and creatinine are normal at 42 and 2.29. His vitals are stable. At this point, he has 2/10 chest pain, which is consistent with his baseline. He has been seen in consultation by Dr. Parsons who recommends heparin drip and nitroglycerin drip, which have been initiated in the emergency room. PAST MEDICAL HISTORY: 1. Coronary artery disease with CABG and 21 stents. 2. Ischemic cardiomyopathy with an ejection fraction 25%. 3. AFib. 4. CKD. 5. Hypertension. 6. Pacemaker ICD. 7. Peripheral vascular disease. 8. Polycythemia vera. 9. History of lipoma. 10. 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 MEDICATIONS: 1. Entresto 24/26 mg one tab by mouth daily. 2. Nitro patch 0.8 mg an hour daily. 3. Crestor 10 mg daily. 4. Nitrostat 0.4 mg as needed for chest pain. 5. Clopidogrel 75 mg daily. 6. Demadex 10 mg as well as needed for weight gain. 7. Eliquis 2.5 mg b.i.d. 8. Bisoprolol 2.5 mg daily. 9. COQ10 400 mg daily. 10. Digoxin 0.125 mg 3 times a week Friday, Friday, and Friday. ALLERGIES: ZETIA, SIMVASTATIN, BETA BLOCKERS (causes fatigue). FAMILY HISTORY: Mom at age 96 with dementia. Dad is from coronary artery disease. The patient has 2 brothers one of which from coronary artery disease, the other is alive, but he has also had significant coronary artery disease. SOCIAL HISTORY: The patient is a nonsmoker. Drinks alcohol very occasionally. 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 He is . He has 4 children. His son this past summer from throat cancer. His , Lady, is the health-care proxy. REVIEW OF SYSTEMS: A 14-point review of systems was completed with Mr. Lou and all those not mentioned above were negative. PHYSICAL EXAMINATION GENERAL: Mr. Lou is lying in the bed with his at the bedside. He is in no acute distress. VITAL SIGNS: Temperature 96.9, pulse rate 90, respiratory rate 15, O2 saturation 100% on 3 L nasal cannula, blood pressure 170/94. LUNGS: Clear to auscultation bilaterally with no accessory muscle use and good aeration. HEART: S1 and S2. No murmur, rub, or gallop is appreciated. It is regular. ABDOMEN: Soft and nontender with bowel sounds positive x4. EXTREMITIES: No cyanosis or edema. NEUROLOGIC: He is alert, he is oriented and making jokes. He moves all extremities equally. There is no facial asymmetry or focal weakness. Extraocular movements are intact. SKIN: Intact except for he has ulceration and deformity to his left ear lobe with reported history of squamous cell carcinoma. DIAGNOSTIC STUDIES/LABORATORY DATA: Sodium 138, potassium 4.6, chloride 103, serum bicarbonate 28, BUN 42, creatinine 2.29, glucose 150. BNP 848. Troponin 0.03. WBC is 6.9, hemoglobin 15.4, hematocrit 46, platelet count 173. INR 1.20. Chest x-ray shows no acute change. EKG shows AV paced rhythm. ASSESSMENT: Mr. Lou is an 82-year-old male with past medical history of coronary artery disease with coronary artery bypass grafting and 21 stents as well as ischemic cardiomyopathy and last known ejection fraction from stress test October 2017 of 25%, who presents today to the hospital with acute worsening of his chronic chest pain. Our plans are for inpatient admission. I would expect his length of his stay to be greater than 2 days for the followin. Chest pain: The patient has a significant history of coronary artery disease and multiple interventions. I appreciate the evaluation from Dr. Parsons who knows the patient from multiple previous interventions. At this point, his troponin is 0.03. His EKG is nondiagnostic. His pain is well controlled now at 2/10, which he states is his baseline. Plans are to initiate nitroglycerin and heparin drip. We will hold Eliquis. We will continue on his home medications of bisoprolol, digoxin, clopidogrel, and Entresto if the patient's can bring it in from home. He will have morphine and oxygen available p.r.n. for chest pain. We will recycle his troponins. Given his significant history, plan to monitor in the ICU overnight and Dr. Benjamin will be providing cardiac consultation in the AM. 2. Chronic kidney disease is at baseline. 3. DVT prophylaxis with heparin drip and SCDs. 4. Code status is full code. This was reviewed with the patient and his at the bedside and they have disagreed on this in the past, but at this point would like to continue with the full code status. 5. Disposition to ICU. TIME SPENT: Approximately 60 minutes were spent on the admission of this patient, more than half time spent with the patient at the bedside reviewing the events leading up to this hospitalization, performing the physical examination, and reviewing the plan of care. LAUREL SILVER NP [id number]/[facility] #: [id number] RAGHAV
[2017-11-22] MEDS: Bisoprolol TAB* 5 MG PO SCH (21:23)
[2017-11-23 07:13] LABS: ABS Basophils 0 10^3/ul (0-0.2); ABS Eosinophils 0.2 10^3/ul (0-0.6); ABS Lymphocytes 2.3 10^3/ul (1.0-4.8); ABS Monocytes 0.6 10^3/ul (0-0.8); ABS Neutrophils 3.7 10^3/ul (1.5-7.7); ABS Nucleated RBC 0 10^3/ul; Hematocrit 45 % (42-52); Lymphocyte % 34.1 % (25-47); Mean Corpuscular HGB Conc 34 g/dl (31-36); Mean Corpuscular Hemoglobin 29 pg (27-31); Mean Corpuscular Volume 87 fL (80-94); Mean Platelet Volume 9.2 um3 (7.4-10.4); Nucleated Red Blood Cells % 0.1; Platelet Count 162 10^3/ul (150-450); Red Blood Count 5.15 10^6/ul (4.0-5.4); Red Cell Distribution Width 17 % (10.5-15); White Blood Count 6.9 10^3/ul (3.5-10.8)
[2017-11-23 07:35] LABS: EGFR Non-African American 33.1 (>60)
--- NOTE | 2017-11-23 09:28 | PN ---
Subjective Date of Service: 11/23/17 Interval History: Patient reports he feels much better and denies any CP this morning. He does report he awoke in the night and had increased chest pressure which lasted about 30 mins, denies any other accompanied symptoms. He states this has happened to him 3-4 times this week where he awakes in the night from CP which he states is abnormal for him. He wonders if he has sleep apnea. He did have a sleep study "many, many" years ago and was normal. He denies any recent illnesses. No fever or chills. Denies SOB, orthopnea or LE swelling Objective Active Medications: Acetaminophen (Tylenol Tab*) 650 mg PO Q6H PRN PRN Reason: PAIN Bisoprolol Fumarate (Zebeta Tab*) 2.5 mg PO BEDTIME BASHIR Last Admin: 11/22/17 21:23 Dose: 2.5 mg Clopidogrel Bisulfate (Plavix Tab*) 75 mg PO DAILY [facility] Digoxin (Lanoxin Tab*) 0.125 mg PO MOTUWE [facility] Heparin Sodium/Dextrose (Heparin Drip 25,000 Units(*)) 25,000 units in 500 mls @ 0 mls/hr IV PER RATE BASHIR; Per Protocol PRN Reason: Protocol Last Admin: 11/22/17 15:30 Dose: 25 mls/hr Nitroglycerin/Dextrose 25,000 (mcg/ IV Solution) 250 mls @ 6 mls/hr IV ED ONCE ONE PRN Reason: 10 MCG/MIN Stop: 11/24/17 07:01 Last Admin: 11/22/17 14:29 Dose: 6 mls/hr Morphine Sulfate (Morphine Inj (Syringe)*) 2 mg IV Q4H PRN PRN Reason: PAIN - MILD Ondansetron HCl (Zofran Inj*) 4 mg IV Q6H PRN PRN Reason: NAUSEA Sacubitril/Valsartan (Entresto (Nf)) 1 tab PO DAILY [facility] Vital Signs - 8 hr 11/23/17 11/23/17 11/23/17 01:32 01:44 02:00 Temperature Pulse Rate 80 85 Respiratory 12 19 16 Rate Blood Pressure 166/101 153/110 (mmHg) O2 Sat by Pulse 97 94 Oximetry 11/23/17 11/23/17 11/23/17 02:01 02:31 03:00 Temperature Pulse Rate 76 Respiratory 31 13 18 Rate Blood Pressure 161/106 138/81 (mmHg) O2 Sat by Pulse 96 Oximetry 11/23/17 11/23/17 11/23/17 03:01 03:30 03:38 Temperature 98.3 F Pulse Rate 83 73 Respiratory 13 12 Rate Blood Pressure 140/80 168/96 (mmHg) O2 Sat by Pulse 97 97 Oximetry 11/23/17 11/23/17 11/23/17 04:00 04:30 05:00 Temperature Pulse Rate 67 74 79 Respiratory 12 21 14 Rate Blood Pressure 147/85 140/88 140/86 (mmHg) O2 Sat by Pulse 98 94 96 Oximetry 11/23/17 11/23/17 11/23/17 05:31 06:00 06:30 Temperature Pulse Rate 68 92 87 Respiratory 19 18 8 Rate Blood Pressure 141/85 142/81 139/91 (mmHg) O2 Sat by Pulse 96 96 91 Oximetry 11/23/17 11/23/17 11/23/17 07:00 07:30 07:32 Temperature 98.2 F Pulse Rate 75 69 Respiratory 21 13 Rate Blood Pressure 138/80 158/92 (mmHg) O2 Sat by Pulse 97 97 Oximetry 11/23/17 11/23/17 11/23/17 08:00 08:01 09:00 Temperature Pulse Rate 71 67 64 Respiratory 11 11 17 Rate Blood Pressure 135/87 (mmHg) O2 Sat by Pulse 100 91 100 Oximetry Oxygen Devices in Use Now: None Appearance: well developed 82 yo male A+O x3 in NAD Eyes: No Scleral Icterus, PERRLA Ears/Nose/Mouth/Throat: NL Teeth, Lips, Gums, Mucous Membranes Moist Neck: NL Appearance and Movements; NL JVP Respiratory: Symmetrical Chest Expansion and Respiratory Effort, Clear to Auscultation Cardiovascular: NL Sounds; No Murmurs; No JVD, RRR, No Edema Abdominal: NL Sounds; No Tenderness; No Distention Extremities: No Edema, No Clubbing, Cyanosis Skin: No Rash or Ulcers, - - left ear lobe nodule with irregular borders - open in middle with noted open ulceration - no erythema or drainage. no noted abscess Neurological: Alert and Oriented x 3 Lines/Tubes/Other Access: Clean, Dry and Intact Peripheral IV Nutrition: Taking PO's Result Diagrams: 11/23/17 06:44 11/23/17 06:44 Microbiology and Other Data: Microbiology 11/22/17 19:32 Nasal Screen MRSA (PCR)(FRANCES) - Final Nasal Mrsa Not Detected Assess/Plan/Problems-Billing Assessment: 82 yo male with a PMH of CAD with CABG and 21 stents, pacer ICD, afib, ischemic cardiomyopathy with EF 25%, recent hospitalization 10/15 with c/o CP found to have troponin 0.25 and underwent a nuclear cardiac stress test that showed "large lateral and anterior wall infarct significantly enlarged over 2014 exam with small surrounding number of ischemia, severe global hypokinesis and marked abnormal estimated left ventricular EF 25%, dilated left ventricle with interval worsening, high risked based on nuclear portion" at that time he was seen by cardiology and treated with medical management. Recently saw outpt cardiology for follow up on 11/18 and was taken of metolazone, increased bisoprolol, cardizem D/C'd and started on Digoxin 0.125 mg 3 times a week. He now presented to the emergency department on 11/22 with c/o acute worsening of his chronic chest pain awaking in the night for the past 3-4 nights with CP resolved with sublingual nitro reporting worsening CP yesterday bringing him to the ER. Patient admitted to the ICU for heparin and nitro gtt. - Patient Problems (1) Chest pain Comment: - Currently denies CP. Stable. - Pt with significant cardiac history. At baseline Pt reports a 2/10 chest discomfort. Recent chemical nuclear stress test in early october (see report) - medically managed at that time. - Troponin 0.03, 0.04. 0.04 - Atrial paced on EKG - Cardiology spoken to on admission with recommendation to start Nitro and heparin gtt, which will continue at this time. Cardiology to see patient today to determine course. - I do wonder if the patient has Sleep apnea with epsiodes of CP in the night. Outpatient sleep study should be considered - continue nitro and heparin gtt - continue home meds digoxin, entresto, bisoprolol, plavix (2) Hx of congestive heart failure Comment: - BNP elevated in the 800's but does not appear to be in CHF or fluid overloaded - History ischemic cardiomyopathy with EF 25% - continue home meds - digoxin, entresto, bisoprolol. Hold Torsemide (he takes prn at home) (3) Atrial fibrillation Comment: - Paced - Continue digoxin (3x week), BB, (Cardizem recently D/C'd). eliquis on hold ( on Heparin gtt) (4) CKD (chronic kidney disease) Comment: - at baseline. Hx of renal failure with dialysis (resolved) (5) Skin cancer (melanoma) Comment: - followed by Dr. Cedeño and Dr. Boston. Not a surgical canidate d/t cardiac hx. At this point it is being watched. (6) COPD (chronic obstructive pulmonary disease) Comment: - stable. not an active problem (7) HTN (hypertension) Comment: - SBP 130's - Continue home meds (8) Hx of polycythemia vera Comment: - History (9) Hx of lymphoma Comment: - history. Followed by Dr. Cedeño (10) DNR (do not resuscitate) (11) DVT prophylaxis Comment: - Heparin GTT Status and Disposition: inpatient with chest pain on nitro and heparin gtt. Awaiting consult from Cardiology.
[2017-11-23] MEDS: Clopidogrel TAB* 75 MG PO SCH (10:11)
[2017-11-23] MEDS: Heparin DRIP 25,000 UNITS(*) 25,000 UNITS/500 ML BAG IV SCH (11:51)
--- NOTE | 2017-11-23 12:17 | ECHO ---
Patient: LATANYA FERREIRA [facility] Rec#: [id number] : 1935 Date: 11/23/2017 Age: 82y Height: 172.72 cm / 68.0 in Weight: 78.93 kg / 174.0 lbs Sex: M Admit Date#: 11/22/2017 Referring: Laurel Silver NP Reading: David Benjamin MD Assembly Worker: Jacqueline Garcia RDCS,RDMS CC: Steve Cedeño MD Transthoracic Echocardiogram Findings History: CAD, CABG, PCI, AFIB, cardiomyopathy, HTN, ICD, lymphoma Technical Comments: The study quality is fair. Left Ventricle: The left ventricular chamber size is mildly dilated. Mild concentric left ventricular hypertrophy is observed. There is global hypokinesis of the left ventricle with minor regional variation. There is severely decreased left ventricular systolic function. The estimated ejection fraction is 20-25%. Abnormal left ventricular diastolic function is observed. Left Atrium: The left atrium is moderately dilated. Right Ventricle: The right ventricular cavity size is normal. The right ventricular global systolic function is low normal. A pacemaker wire is visualized in the right ventricle. Right Atrium: The right atrium is not well visualized. Aortic Valve: The aortic valve is trileaflet. The aortic valve leaflets are mildly thickened. There is no evidence of aortic regurgitation. There is no evidence of aortic stenosis. Mitral Valve: The mitral valve leaflets are mildly thickened. There is mild mitral regurgitation. There is no evidence of mitral stenosis. Tricuspid Valve: The tricuspid valve leaflets are normal. There is mild to moderate tricuspid regurgitation. No pulmonary hypertension is noted. Pulmonic Valve: There is no evidence of pulmonic valve thickening. There is a trace pulmonic regurgitation. Pericardium: There is no significant pericardial effusion. Aorta: There is mild dilatation of the ascending aorta. There is no dilatation of the aortic arch. There is no dilation of the aortic root. Pulmonary Artery: The main pulmonary artery is not well visualized. Venous: The inferior vena cava is dilated. There is an approximate 50% respiratory change in the inferior vena cava dimension. Conclusions There is global hypokinesis of the left ventricle with minor regional variation. There is severely decreased left ventricular systolic function. The estimated ejection fraction is 20-25%. The right ventricular global systolic function is low normal. A pacemaker wire is visualized in the right ventricle. There is no evidence of aortic stenosis. There is mild mitral regurgitation. There is mild to moderate tricuspid regurgitation. No pulmonary hypertension is noted. There is no significant pericardial effusion. Measurements Name Value Normal Range RVIDd (AP) 2D 2.8 cm (0.9 - 2.6) IVSd (2D) 1.3 cm (0.6 - 1) LVPWd (2D) 1.2 cm (0.6 - 1) LVIDd (2D) 5.6 cm (3.6 - 5.4) LVIDs (2D) 4.5 cm - LV FS (2D) 20 % (25 - 45) Aortic Annulus 2.3 cm (1.4 - 2.6) Ao root diameter (2D) 3.1 cm (2.1 - 3.5) Ascending Ao 4.1 cm (2.1 - 3.4) Aortic arch 3 cm (1.8 - 3.4) LA dimension (AP) 2D 5.2 cm (2.3 - 3.8) LAd ISD 4CH 6.4 cm (2.9 - 5.3) LA ISD 4CH W 4.9 cm (2.5 - 4.5) Name Value Normal Range LA ESV SP 4CH (A/L) 83.93 ml - LA ESV SP 2CH (A/L) 66.19 ml - LA ESV BP (A/L) 80.24 ml - LA ESV BP (A/L) index 42 ml/m2 - LA ESV SP 4CH (MOD) 77.17 ml - LA ESV SP 2CH (MOD) 60.58 ml - Name Value Normal Range MV E-wave Vmax 0.7 m/sec - MV deceleration time 226 msec - MV A-wave Vmax 0.3 m/sec - MV E:A ratio 2.3 ratio - LV septal e' Vmax 0.04 m/sec - LV lateral e' Vmax 0.05 m/sec - LV E:e' septal ratio 17.5 ratio - LV E:e' lateral ratio 14 ratio - Name Value Normal Range AV Vmax 0.8 m/sec - AV VTI 16 cm - AV peak gradient 2.6 mmHg - AV mean gradient 1.3 mmHg - LVOT Vmax 0.5 m/sec - LVOT VTI 11 cm - LVOT peak gradient 1 mmHg - LVOT mean gradient 0.6 mmHg - Name Value Normal Range TR Vmax 2.6 m/sec - TR peak gradient 27 mmHg - RAP 3 mmHg - RVSP 30 mmHg - IVC diameter 2.2 cm - Name Value Normal Range PV Vmax 0.4 m/sec - PV peak gradient 0.6 mmHg -
[2017-11-23] MEDS ORDERED: Heparin VIAL(*) 5000 UNITS/ML VIAL (FIVE THOUSAND) SUBCUT SCH (14:00)
[2017-11-23] MEDS: VALSARTAN PO SCH (15:48)
[2017-11-23] MEDS: SACUBITRIL PO SCH (15:48)
[2017-11-23] MEDS: Apixaban* 2.5 MG TAB PO SCH (20:22)
[2017-11-23] MEDS: Bisoprolol TAB* 5 MG PO SCH (20:23)
--- NOTE | 2017-11-23 23:06 | ED ---
Pam Galdamez Emily, scribed for Eren Bloom MD on 11/22/17 at 1330 . HPI Chest Pain - HPI Summary HPI Summary: This patient is an 82 year old M presenting to [facility] with a chief complaint of R sided CP that radiates through R arm that began 2 hours ago. The patient rates the pain 4/10 in severity. Symptoms aggravated by nothing. Symptoms alleviated by nothing. Patient reports nausea, diaphoresis, and SOB. Pt reports a history of lymphoma 26 years ago and CAD subsequently status post CABG 20 years ago, and since then s/p PCI s/p "21stents". Since then has had several SD including August and September of this year. Two more stents put in in August. 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 - History of Current Complaint Chief Complaint: EDChestPainROMI Time Seen by Provider: 11/22/17 13:22 Hx Obtained From: Patient Onset/Duration: Started Hours Ago, Still Present Time of Onset: 11:25 Timing: Constant Initial Severity: Moderate Current Severity: Moderate Chest Pain Location: Right Lateral Chest Pain Radiates: Yes Chest Pain Radiates To:: Arm Aggravating Factor(s): Nothing Alleviating Factor(s): Nothing Associated Signs and Symptoms: Positive: Other: - Positive nausea, diaphoresis, and SOB - Additional Pertinent History Primary Care Physician: [id number] - Allergy/Home Medications Allergies/Adverse Reactions: Allergies Allergy/AdvReac Type Severity Reaction Status Date / Time ezetimibe [From Vytorin] Allergy Unknown Verified 11/22/17 13:22 Reaction Details simvastatin [From Vytorin] Allergy Unknown Verified 11/22/17 13:22 Reaction Details Beta-Blockers AdvReac Severe Altered Verified 11/22/17 13:22 (Beta-Adrenergic Bloc Mental Status Home Medications: Home Medications Bisoprolol TAB* [Zebeta TAB*] 2.5 mg PO BEDTIME 11/22/17 [History Confirmed ] Digoxin TAB* [Lanoxin TAB*] 0.5 tab PO MOTUWE 11/22/17 [History Confirmed ] Sacubitril/Valsartan (NF) [Entresto (NF)] 1 tab PO DAILY 11/22/17 [ History Confirmed 11/22/17] Co Q-10 200 mg PO DAILY 11/23/17 [History Confirmed 11/23/17] Torsemide 10 mg PO WEEKLY PRN 11/23/17 [History Confirmed 11/23/17] PMH/Surg Hx/FS Hx/Imm Hx Previously Healthy: No Endocrine/Hematology History: Reports: Hx Anticoagulant Therapy, Hx Blood Disorders - lymphoma, Hx Blood Transfusions Denies: Hx Diabetes Comment Only: Other Endocrine/Hematological Disorders - polycythemia Cardiovascular History: Reports: Hx Angina, Hx Angioplasty, Hx Auto Implanted Cardiovert Defib, Hx Congestive Heart Failure, Hx Coronary Artery Disease, Hx Hypercholesterolemia, Hx Hypertension, Hx Myocardial Infarction, Hx Pacemaker/ ICD - 2011, Other Cardiovascular Problems/Disorders - LYMPHOMA Denies: Hx Valvular Heart Disease Respiratory History: Reports: Hx Pneumonia, Hx Sleep Apnea Denies: Hx Chronic Obstructive Pulmonary Disease (COPD) Comment Only: Hx Asthma - lymphoma x 22 yrs History: Reports: Hx Acute Renal Failure Denies: Hx Kidney Stones Musculoskeletal History: Reports: Hx Gout, Other Musculoskeletal History - AFTER STENT 4 YRS AGO HE DEVELOPED SEPTOCEMIA AND A PELVIC ABSCESS Denies: Hx Arthritis, Hx Osteoporosis Sensory History: Reports: Hx Contacts or Glasses Denies: Hx Eye Prosthesis, Hx Glaucoma, Hx Legally Blind, Hx Macular Degeneration, Hx Hearing Aid, Hx Hearing Problem Opthamlomology History: Reports: Hx Contacts or Glasses Denies: Hx Eye Prosthesis, Hx Glaucoma, Hx Legally Blind, Hx Macular Degeneration Neurological History: Reports: Other Neuro Impairments/Disorders - Tremors Psychiatric History: Reports: Hx Depression Denies: Hx Panic Disorder - Cancer History Cancer Type, Location and Year: Lymphoma (2) Hx Chemotherapy: Yes - Surgical History Surgery Procedure, Year, and Place: 72 YRS AGO TONSILECTOMY, PYONATAL CYST IN SACRAL AREA 50 YRS AGO, QUAD BYPASS 15 YRS, 9 CARDIAC STENTS MOST RECENT 2011, , CARCINOMA FACIAL, VARIOUS DENTAL WORK, ENDOSCOPY BIOPSY FOR LYMPHNODES, . MULTIPLE BONE MARROW BIOPSIES. Coronary artery stents 2018 Hx Anesthesia Reactions: No - Immunization History Date of Tetanus Vaccine: up to date Date of Influenza Vaccine: Fall 2012 Infectious Disease History: Reports: Hx Shingles, History Other Infectious Disease Denies: Hx Clostridium Difficile, Hx Hepatitis, Hx Human Immunodeficiency Virus (HIV), Hx Tuberculosis, Hx Known/Suspected VRE, Hx Known/Suspected VRSA - Family History Known Family History: Positive: None - noncontributory - Social History Occupation: Retired Lives: With Family Alcohol Use: None Substance Use Type: Reports: None Hx Tobacco Use: No Smoking Status (MU): Never Smoked Tobacco Review of Systems Positive: Skin Diaphoresis Positive: Chest Pain Positive: Shortness Of Breath Positive: Nausea All Other Systems Reviewed And Are Negative: Yes Physical Exam - Summary Physical Exam Summary: Appearance: Well-appearing, Well-nourished Skin: Warm Eyes: Normal ENT: Normal Neck: Supple, nontender Respiratory: Clear to auscultation Cardiovascular: Regular rhythm. Normal S1, S2. Mid-line incision scar. Mildly tachycardic with HR in the 90s. Abdomen: Soft, nontender Musculoskeletal: Normal, Strength/ROM Intact Neurological: Normal, A&Ox3 Psychiatric: Normal General: No acute distress Triage Information Reviewed: Yes Vital Signs On Initial Exam: Initial Vitals Temp Pulse Resp BP Pulse Ox 36.1 C 90 14 180/109 98 11/22/17 13:23 11/22/17 13:23 11/22/17 13:23 11/22/17 13:23 11/22/17 13:23 Vital Signs Reviewed: Yes Diagnostics - Vital Signs Vital Signs Temp Pulse Resp BP Pulse Ox 11/22/17 13:56 100 11/22/17 13:30 95 13 100 11/22/17 13:28 170/94 11/22/17 13:23 36.1 C 90 14 180/109 98 - Laboratory Lab Results: Lab Results 11/22/17 11/22/17 11/22/17 Range/Units 13:53 13:53 13:53 WBC 6.9 (3.5-10.8) 10^3/ul RBC 5.29 (4.0-5.4) 10^6/ul Hgb 15.4 (14.0-18.0) g/dl Hct 46 (42-52) % MCV 88 (80-94) fL MCH 29 (27-31) pg MCHC 33 (31-36) g/dl RDW 16 H (10.5-15) % Plt Count 173 (150-450) 10^3/ul MPV 8.9 (7.4-10.4) um3 Neut % (Auto) 51.8 (38-83) % Lymph % (Auto) 36.4 (25-47) % [place] % (Auto) 9.2 H (0-7) % Eos % (Auto) 2.2 (0-6) % Baso % (Auto) 0.4 (0-2) % Absolute Neuts (auto) 3.6 (1.5-7.7) 10^3/ul Absolute Lymphs (auto) 2.5 (1.0-4.8) 10^3/ul Absolute Monos (auto) 0.6 (0-0.8) 10^3/ul Absolute Eos (auto) 0.2 (0-0.6) 10^3/ul Absolute Basos (auto) 0 (0-0.2) 10^3/ul Absolute Nucleated RBC 0 10^3/ul Nucleated RBC % 0 INR (Anticoag Therapy) 1.20 H (0.77-1.02) APTT 38.9 H (26.0-36.3) seconds Sodium 138 L (139-145) mmol/L Potassium 4.6 (3.5-5.0) mmol/L Chloride 103 (101-111) mmol/L Carbon Dioxide 28 (22-32) mmol/L Anion Gap 7 (2-11) mmol/L BUN 42 H (6-24) mg/dL Creatinine 2.29 H (0.67-1.17) mg/dL Est GFR ( Amer) 35.5 (>60) Est GFR (Non-Af Amer) 27.6 (>60) BUN/Creatinine Ratio 18.3 (8-20) Glucose 150 H (70-100) mg/dL Calcium 9.2 (8.6-10.3) mg/dL Total Bilirubin 1.20 H (0.2-1.0) mg/dL AST 14 (13-39) U/L ALT 13 (7-52) U/L Alkaline Phosphatase 54 (34-104) U/L Total Creatine Kinase 67 (10-223) U/L CK-MB (CK-2) Pending Troponin I 0.03 (<0.04) ng/mL Total Protein 7.4 (6.4-8.9) g/dL Albumin 4.0 (3.2-5.2) g/dL Globulin 3.4 (2-4) g/dL Albumin/Globulin Ratio 1.2 (1-3) LDL Cholesterol Direct 88 mg/dL Result Diagrams: 11/23/17 06:44 11/23/17 06:44 Lab Statement: Any lab studies that have been ordered have been reviewed, and results considered in the medical decision making process. - Radiology CXR Radiology Interpretation Completed By: Radiologist - CXR reveals, per radiologist, no radiographic evidence for acute cardiopulmonary abnormality on this portable chest XR. ED physician has reviewed this radiology report. - EKG 1310 Cardiac Rate: NL EKG Interpretation: Paced. Unchanged from previous. Chest Pain Course/Dx - Course Course Of Treatment: Pt's HR was paced with elevated ST in leads V2 and V3 unchanged from previous EKG in October. Pt is well known to Dr Benjamin (cardilogist ) and DR Parsons. Spoke to Dr Benjamin and advsied me Dr Parsons should be called ( fire sprinkler apparatus inspector) to evaluate the pt. Dr Parsons assessed pt and determined that pt is currently not a surgical candidate and should be admitted to hospitalist service for medica optimization for his unstable angina. Called hospitalist to admit pt who agreed. Assessment/Plan: Trop 0.03, other labs unremarkable - Chest Pain Differential Diagnosis/HQI/PQRI: Acute SD, Angina, Other: - Diagnoses Provider Diagnoses: Unstable angina - Provider Notifications Discussed Care Of Patient With: David Benjamin Time Discussed With Above Provider: 13:23 Instructed by Provider To: Other - Brain CT reveals, per radiologist, no CT evidence of acute injury including calvarial fracture or definite acute intracranial hemorrhage. ED physician has reviewed this radiology report. Discharge - Sign-Out/Discharge Documenting (check all that apply): Discharge - Admit - Discharge Plan Condition: Stable Disposition: ADMITTED TO [facility] - Billing Disposition and Condition Condition: STABLE Disposition: [facility] [place] The documentation as recorded by the Pam altamirano Emily accurately reflects the service I personally performed and the decisions made by Wolf joiner Euni, MD.
--- NOTE | 2017-11-23 23:31 | CONS ---
CC: Dr. Benjamin; Dr. Cedeño* CARDIOLOGY CONSULTATION NOTE: DATE OF CONSULT: 11/23/17 INDICATIONS FOR CONSULTATION: Chest pain. HISTORY OF PRESENT ILLNESS: This is an 82-year-old gentleman with an extensive ischemic cardiomyopathy history, history of coronary bypass surgery, history of multiple stents. These were described in great detail at my last consultation on 10/14/17. At that time, the patient was admitted to the hospital. He had a mild elevation of his troponin. He underwent a chemical nuclear stress test which was reviewed by Dr. Benjamin and by Dr. Parsons, and the decision was not to pursue intervention at that time. The patient was at home on the afternoon of 11/22/17. The patient states he got his usual chest pain. He did take sublingual nitroglycerin, but rather than wait to see if it worked, he decided to come to the emergency room. On arrival to the emergency room, the patient was essentially pain free. He was placed on a nitroglycerin drip. At that time, his EKG was evaluated and thought that he had an ST segment elevation. Dr. Parsons did see the patient in evaluation. At that time, the decision was not to take the patient to the emergency room as he was not as uncomfortable as he was back in August when he was in [place]. The patient was placed on a heparin drip, nitroglycerin drip , and admitted to the intensive care unit. I saw the patient on the morning of 11/23/17. At that time, the patient was pain free. He had no further complaints. PAST MEDICAL HISTORY: Significant for ischemic cardiomyopathy, pacemaker implantation with an upgrade to an ICD. MEDICATIONS: Outpatient Medications: 1. Plavix 75 mg a day. 2. Nitroglycerin p.r.n. 3. Crestor 10 mg a day. 4. Torsemide 10 mg twice weekly. 5. Nitroglycerin patch 0.6 mg every hour. 6. Eliquis 2.5 mg b.i.d. 7. Digoxin 0.5 mg tablets on Friday, Friday, and Friday. 8. Entresto tablet . 9. Bisoprolol 2.5 mg q.h.s. ALLERGIES: He is intolerant of BETA BLOCKERS, SIMVASTATIN, ZETIA. FAMILY HISTORY: Was not reviewed. SOCIAL HISTORY: He is . 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 He denies tobacco or alcohol use. PHYSICAL EXAM: Vital Signs: Height is 5 feet 8 inches, weight is 187 pounds. Temperature 98.1, heart rate is 64, blood pressure 129/77, oxygen saturation 100 % on 2 L, respiratory rate is 17. Sclerae anicteric. Oropharynx is pink without erythema. Carotids are 2+ without bruits. The patient has a large squamous growth on his left ear. JVD is normal. Cardiac Exam: S1 and S2 without any murmurs, rubs, or gallops. His pacemaker site is stable. PMI is normal. Lungs are clear to auscultation bilaterally. There is no dullness to percussion. Abdomen is soft, nontender, and nondistended with normoactive bowel sounds. Extremities show no edema. He has 2+ pulses throughout. The patient is awake, alert, and oriented. He moves all 4 extremities equally. DIAGNOSTIC STUDIES/LAB DATA: On arrival to the emergency room, CBC within normal limits. Chemistry is within normal limits. BUN 42, creatinine 2.2 which is essentially at his baseline. AST and ALT were negative. Initial troponin level was 0.03. BNP was 848. LDL direct was 88. The patient's next troponin level was 0.04 and the third troponin was 0.04. The patient remained pain free overnight. The patient had an echocardiogram which showed no changes from his previous echocardiograms. He has severe ischemic cardiomyopathy. Ejection fraction of 25%. No significant valvular abnormalities. IMPRESSION: This is an 82-year-old gentleman with a history of ischemic cardiomyopathy, multiple stents, coronary artery bypass surgery who was admitted to the hospital with chest pain. He essentially ruled out for a myocardial infarction and he appears to be pain free today. At this point, I do not think major changes in medications are necessary. I do not think any other cardiac testing is necessary. We will observe the patient in the hospital one more night and likely discharge the patient in the morning. The patient will follow up with Dr. Benjamin as an outpatient. This case was discussed with Dr. Parsons and Alma eCsar NP from the hospitalist service. [id number]/[facility] #: [id number] [facility]
[2017-11-24] MEDS: Nitroglycerin TAB 0.4 MG* 0.4 MG TAB SL PRN ×2 (01:50→03:16)
[2017-11-24] MEDS ORDERED: Nitroglycerin 0.6 MG/HR PATCH* (15 MG) TRANSDERM SCH (03:39)
[2017-11-24 08:07] VITALS: BP 123/77
[2017-11-24] MEDS ORDERED: Digoxin TAB* 0.125 MG PO SCH ×2 (09:00)
[2017-11-24] MEDS ORDERED: Epleronone (NF) 25 MG TAB PO SCH (09:00)
[2017-11-24] MEDS: Apixaban* 2.5 MG TAB PO SCH (09:36)
[2017-11-24] MEDS: VALSARTAN PO SCH (09:36)
[2017-11-24] MEDS: SACUBITRIL PO SCH (09:36)
[2017-11-24] MEDS: Clopidogrel TAB* 75 MG PO SCH (09:36)
[2017-11-24] MEDS ORDERED: Nitro Patch/OINT Remove PATCH OFF SCH (15:30)
--- NOTE | 2017-11-25 03:37 | DS ---
CC: Dr. Benjamin; Dr. Cedeño * DISCHARGE SUMMARY: DATE OF ADMISSION: 11/22/17 DATE OF DISCHARGE: 11/24/17 PRIMARY CARE PROVIDER: Dr. Cedeño. AGING DEPARTMENT SUPERVISOR: Dr. Benjamin. PRIMARY DIAGNOSIS: Chest pain. SECONDARY DIAGNOSES: Include: 1. Coronary artery disease with extensive history of interventions, 21 stents. 2. Ischemic cardiomyopathy, ejection fraction of 25%. 3. Atrial fibrillation. 4. Chronic kidney disease. 5. Hypertension. 6. Permanent pacemaker/ICD. MEDICATIONS ON DISCHARGE: Unchanged from admission, include: 1. CoQ10. 2. Torsemide 10 mg twice weekly as needed. 3. Digoxin 0.5 mg Friday, Friday, Friday. 4. Entresto 1 tab daily. 5. Nitroglycerin 0.6 mg per hour patch daily. 6. Rosuvastatin 10 mg daily. 7. Nitroglycerin sublingual as needed. 8. Clopidogrel 75 mg daily. 9. Bisoprolol 2.5 mg at bedtime. 10. Eliquis 2.5 mg twice daily. PERTINENT LABORATORY STUDIES: Troponin I 0.03 increased to 0.04 on 2 consecutive checks. HISTORY OF PRESENT ILLNESS AND HOSPITAL COURSE: This is an 82-year-old man with past medical history as outlined detailed in the history of present illness on the day of admission including cardiac history, recent hospital stay in October mitigating area of potential ischemia, presented to the hospital with chest pain, was placed in the ICU, nitroglycerin as well as heparin infusion. He had been chest pain free and his 2 interventions discontinued the day prior to my presentation. When seen by this author, he did indicate that he does not want any intervention including cardiac catheterization. He indicated that he wants to be treated as he did in the past with pain control which to include morphine. I indicated that he may be a candidate for hospice, which he agreed to and would like to be evaluated as an outpatient. I did discuss his care with Dr. Mey Slade, who will be happy to see him in consultation as an outpatient should she receive a consultation from his primary care provider. There were no complications during the patient's hospital stay. It is noted that there may be some discord and the step desires between this patient and potentially his healthcare proxy/his whom I did not meet during this hospital stay. At followup please; 1. I placed a referral to hospice in accordance with the patient's wishes. 2. Please evaluate for continued pain freedom, adjust medications as accordingly. 3. No other specific labs or vitals that need followup. TIME SPENT: Greater than 60 minutes was spent on this discharge with patient, greater than half was spent [id number] with the patient. [id number]/[facility] #: [id number] MTDD
== END 2017-11-24 12:40 | disposition home or self-care (01) | DRG 313 ==
LOC: ED 13:20 → OBSVTOIN 15:18 → ICU 15:18 → MEDTELE 11-23 17:42
PROVIDERS: ADMIT Internal Medicine; ATTEND Internal Medicine
DX: R07.9 Chest pain, unspecified (principal); I13.0 Hypertensive heart and chronic kidney disease with heart failure and stage 1 through stage 4 chronic kidney disease, or unspecified chronic kidney disease; I50.9 Heart failure, unspecified; I25.10 Atherosclerotic heart disease of native coronary artery without angina pectoris; E78.00 Pure hypercholesterolemia, unspecified; M10.9 Gout, unspecified; F32.9 Major depressive disorder, single episode, unspecified; I25.5 Ischemic cardiomyopathy; I48.91 Unspecified atrial fibrillation; N18.9 Chronic kidney disease, unspecified; I73.9 Peripheral vascular disease, unspecified; I08.0 Rheumatic disorders of both mitral and aortic valves; J44.9 Chronic obstructive pulmonary disease, unspecified; Z66 Do not resuscitate; C43.9 Malignant melanoma of skin, unspecified; G47.30 Sleep apnea, unspecified; I25.2 Old myocardial infarction; Z95.1 Presence of aortocoronary bypass graft; Z95.5 Presence of coronary angioplasty implant and graft; Z88.8 Allergy status to other drugs, medicaments and biological substances; Z79.01 Long term (current) use of anticoagulants; Z95.810 Presence of automatic (implantable) cardiac defibrillator; Z92.21 Personal history of antineoplastic chemotherapy; Z85.72 Personal history of non-Hodgkin lymphomas; Z87.01 Personal history of pneumonia (recurrent); Z86.19 Personal history of other infectious and parasitic diseases; Z85.820 Personal history of malignant melanoma of skin; Z79.02 Long term (current) use of antithrombotics/antiplatelets
CPT/HCPCS: 36415; 71045; 80048; 80053; 82550; 82553; 83721; 83735; 83880; 84484; 85025; 85610; 85730; 87641; 93005; 93306; 99285; A9270-GY; J1644; J2270; J3490

== ENCOUNTER 2018-03-10 22:01 | Inpatient (IN) | payer MEDICARE, OTHER ==
[2018-03-10] MEDS ORDERED: Aspirin 81 mg CHEW TAB* 81 MG TAB.CHEW PO ONE (22:06)
[2018-03-10] MEDS ORDERED: Ondansetron INJ* 2 MG/ML VIAL ONE (22:06)
[2018-03-10] MEDS ORDERED: Morphine INJ* 2 MG/ML 1 ML SYRINGE (TWO MG - NEW SYRINGE VERSION) ONE (22:06)
[2018-03-10] MEDS ORDERED: Nitroglycerin 0.2 MG/HR PATCH* (5 MG) TRANSDERM ONE (22:06)
[2018-03-10] MEDS ORDERED: Morphine INJ* 2 MG/ML 1 ML SYRINGE (TWO MG - NEW SYRINGE VERSION) IV ONE (22:06)
--- NOTE | 2018-03-10 22:09 | ED ---
HPI Chest Pain - HPI Summary HPI Summary: This is evelia Simeon documenting for attending Modesto Kam MD. This patient is a 83 year old M presenting to [facility] with a chief complaint of chest pain that began one hour ago. The patient rates the pain 9/10 in severity. Pt took .5 mg of morphine and 3 NTG when the pain began. Patient reports diaphoresis. Patient denies n/v, dizziness, and SOB. He states he had a similar episode one day ago that resolved with morphine. Pt states he only wants pain management. - History of Current Complaint Chief Complaint: EDChestPainROMI Hx Obtained From: Patient Onset/Duration: Started Hours Ago, Still Present Time of Onset: 21:00 Timing: Constant Initial Severity: Severe Current Severity: Severe Pain Intensity: 9 Pain Scale Used: 0-10 Numeric Chest Pain Location: Right Anterior Chest Pain Radiates: No Alleviating Factor(s): Nothing Associated Signs and Symptoms: Positive: Chest Pain, Diaphoresis. Negative: Dizziness, Nausea - Additional Pertinent History Primary Care Physician: [facility] - Allergy/Home Medications Allergies/Adverse Reactions: Allergies Allergy/AdvReac Type Severity Reaction Status Date / Time ezetimibe [From Vytorin] Allergy Unknown Verified 11/22/17 13:22 Reaction Details simvastatin [From Vytorin] Allergy Unknown Verified 11/22/17 13:22 Reaction Details Beta-Blockers AdvReac Severe Altered Verified 11/22/17 13:22 (Beta-Adrenergic Bloc Mental Status PMH/Surg Hx/FS Hx/Imm Hx Endocrine/Hematology History: Reports: Hx Anticoagulant Therapy, Hx Blood Disorders - lymphoma, Hx Blood Transfusions Denies: Hx Diabetes Comment Only: Other Endocrine/Hematological Disorders - polycythemia Cardiovascular History: Reports: Hx Angina, Hx Angioplasty, Hx Auto Implanted Cardiovert Defib, Hx Congestive Heart Failure, Hx Coronary Artery Disease, Hx Deep Vein Thrombosis, Hx Hypercholesterolemia, Hx Hypertension, Hx Myocardial Infarction, Hx Pacemaker/ICD - 2011, Other Cardiovascular Problems/Disorders - LYMPHOMA Denies: Hx Valvular Heart Disease Respiratory History: Reports: Hx Pneumonia, Hx Sleep Apnea Denies: Hx Chronic Obstructive Pulmonary Disease (COPD) Comment Only: Hx Asthma - lymphoma x 22 yrs History: Reports: Hx Acute Renal Failure Denies: Hx Kidney Stones Musculoskeletal History: Reports: Hx Gout, Other Musculoskeletal History - AFTER STENT 4 YRS AGO HE DEVELOPED SEPTOCEMIA AND A PELVIC ABSCESS Denies: Hx Arthritis, Hx Osteoporosis Sensory History: Reports: Hx Contacts or Glasses Denies: Hx Eye Prosthesis, Hx Glaucoma, Hx Legally Blind, Hx Macular Degeneration, Hx Hearing Aid, Hx Hearing Problem Opthamlomology History: Reports: Hx Contacts or Glasses Denies: Hx Eye Prosthesis, Hx Glaucoma, Hx Legally Blind, Hx Macular Degeneration Neurological History: Reports: Other Neuro Impairments/Disorders - Tremors Psychiatric History: Reports: Hx Depression Denies: Hx Panic Disorder - Cancer History Cancer Type, Location and Year: Lymphoma (2) Hx Chemotherapy: Yes - Surgical History Surgery Procedure, Year, and Place: 70 YRS AGO TONSILECTOMY, PYONATAL CYST IN SACRAL AREA 50 YRS AGO, QUAD BYPASS 15 YRS, 9 CARDIAC STENTS MOST RECENT 2011, , CARCINOMA FACIAL, VARIOUS DENTAL WORK, ENDOSCOPY BIOPSY FOR LYMPHNODES, . MULTIPLE BONE MARROW BIOPSIES. Coronary artery stents 2018 Hx Anesthesia Reactions: No - Immunization History Date of Tetanus Vaccine: up to date Date of Influenza Vaccine: Fall 2012 Infectious Disease History: Reports: Hx Shingles, History Other Infectious Disease Denies: Hx Clostridium Difficile, Hx Hepatitis, Hx Human Immunodeficiency Virus (HIV), Hx Tuberculosis, Hx Known/Suspected VRE, Hx Known/Suspected VRSA, Traveled Outside the [place] in Last 30 Days - Family History Known Family History: Positive: None - noncontributory - Social History Alcohol Use: None Substance Use Type: Reports: None Hx Tobacco Use: No Smoking Status (MU): Never Smoked Tobacco Review of Systems Positive: Skin Diaphoresis Positive: Chest Pain Negative: Shortness Of Breath Negative: Vomiting, Nausea Neurological: Negative - dizziness All Other Systems Reviewed And Are Negative: Yes Physical Exam - Summary Physical Exam Summary: Appearance: Well appearing, no pain distress Skin: there is a scar on patients chest. There is a diffuse rash and a chronic skin problem. Head/face: normal Eyes: EOMI, DAE ENT: normal Neck: supple, non-tender Respiratory: CTA, breath sounds present Cardiovascular: RRR, pulses symmetrical Abdomen: non-tender, soft Bowel: present Musculoskeletal: normal, strength/ROM intact Neuro: normal, sensory motor intact, A&Ox3 Triage Information Reviewed: Yes Vital Signs Reviewed: Yes Chest Pain Course/Dx - Course Assessment/Plan: This patient is a 83 year old M presenting to [facility] with a chief complaint of chest pain that began one hour ago. The patient rates the pain 9/10 in severity. Pt took .5 mg of morphine and 3 NTG when the pain began. Patient reports diaphoresis. Patient denies n/v, dizziness, and SOB. He states he had a similar episode one day ago that resolved with morphine. This patient refused all labs and EKGs. He insists on only receiving palliative care. We discussed patient care with Dr. Montanez and she will admit the patient to manage his pain. The patient is agreeable with this plan. - Chest Pain Differential Diagnosis/HQI/PQRI: Acute CA, Angina, Chest Wall - Diagnoses Provider Diagnoses: Chest pain, History of coronary artery disease - Provider Notifications Discussed Care Of Patient With: Mila Montanez Time Discussed With Above Provider: 23:22 Instructed by Provider To: Admit As Observation Discharge - Sign-Out/Discharge Documenting (check all that apply): Patient Departure - admitted - Discharge Plan Condition: Fair Disposition: ADMITTED TO [facility] Referrals: No Primary Care Phys,NOPCP [Primary Care Provider] - - Billing Disposition and Condition Condition: FAIR Disposition: Admitted to [facility]
[2018-03-10] MEDS ORDERED: Nitroglycerin 2% OINT* 1 GM PAK ONE (22:12)
[2018-03-10] MEDS ORDERED: Ondansetron INJ* 2 MG/ML VIAL IV ONE (22:16)
[2018-03-10] MEDS ORDERED: Nitroglycerin 2% OINT* 1 GM PAK TOPICAL ONE (22:19)
[2018-03-10] MEDS ORDERED: HYDROmorphone INJ* 2 MG/ML CARPUJECT SYRINGE IV SLOW PU ONE (22:21)
[2018-03-10] MEDS ORDERED: Morphine INJ* 10 MG/ML 1 ML CARPUJECT IV ONE (23:31)
[2018-03-10] MEDS ORDERED: Ondansetron INJ* 2 MG/ML VIAL IV PRN (23:34)
[2018-03-10] MEDS ORDERED: Morphine VIAL* 10 MG/ML 1 ML VIAL ONE (23:36)
[2018-03-10] MEDS ORDERED: Morphine VIAL* 10 MG/ML 1 ML VIAL IV ONE (23:37)
[2018-03-10] MEDS ORDERED: Atropine 1% (ORAL/SL)* 15 ML BTL SL PRN (23:39)
[2018-03-10] MEDS ORDERED: Docusate CAP* 100 MG PO PRN (23:39)
[2018-03-10] MEDS ORDERED: Morphine INJ* 2 MG/ML 1 ML SYRINGE (TWO MG - NEW SYRINGE VERSION) IV PRN (23:39)
[2018-03-10] MEDS ORDERED: Senna TAB PO PRN (23:39)
[2018-03-10] MEDS ORDERED: LORazepam INJ* 2 MG/ML 1 ML VIAL IV PUSH PRN (23:40)
[2018-03-10] MEDS ORDERED: Morphine PCA ADULT* 5 MG/ML 30 ML PCA SCH (23:45)
[2018-03-10] MEDS ORDERED: Naloxone* 0.4 MG/ML 1 ML VIAL IV PUSH PRN (23:47)
[2018-03-11] MEDS ORDERED: diPHENhydraMINE PO* 25 MG PO PRN (00:10)
[2018-03-11] MEDS ORDERED: Morphine PCA ADULT* 5 MG/ML 30 ML ONE (00:18)
[2018-03-11 01:20] VITALS: BP 160/92
--- NOTE | 2018-03-11 02:25 | HP ---
CC: Dr. Cedeño; Dr. Benjamin; [facility] * HISTORY AND PHYSICAL: DATE OF ADMISSION: 03/10/18 TIME OF EVALUATION: 2300. PRIMARY CARE PHYSICIAN: Dr. Cedeño. CHIEF COMPLAINT: Chest pain. HISTORY OF PRESENT ILLNESS: This is an 83-year-old male with a past medical history of coronary artery disease, ischemic cardiomyopathy with ejection fraction of 25%. He has a history of more than 20 stents and bypass, who was recently admitted back in November for chest pain. At that time, due to his significant coronary artery disease with no viable option for intervention, he was discharged home with hospice referral. He has been enrolled in hospice and he has been managing his symptoms at home with nitro and morphine. He states this past week, he has had increase in frequency of his chest pain events. After dinner, he developed chest pain, took a nitro, the pain got worse, took another nitro and he had more pain. He took morphine. There was no improvement in his chest pain. He called the [facility] and they said to come to the emergency room to get his pain under better control. In the emergency room prior to my encounter, the patient was given 4 mg of Zofran, an inch of nitro paste, 4 mg of morphine, a total of 8 mg of morphine and 1 mg of Dilaudid and his pain had improved temporarily during my encounter, but at the end of my encounter when talking about his son who recently , his chest pain became exponentially worse and you could see ST depression on the telemetry. The patient does not want to get an EKG. He does not want any labs or further intervention. He would like to be comfortable and we discussed morphine drip versus bolus and he is preferring a morphine drip to get his pain under better control, which I am agreeable to as well. The patient denies any nausea, vomiting. No abdominal pain. No shortness of breath. No urinary symptoms. No constipation. He is having some itching since he started getting the morphine mostly around his nose. Otherwise, review of systems is negative. The patient is referred to the hospitalist service and does qualify for inpatient hospice. PAST MEDICAL HISTORY: 1. History of coronary artery disease status post bypass and 21 stents. 2. Ischemic cardiomyopathy with ejection fraction of 25%. 3. Atrial fibrillation. 4. CKD. 5. Hypertension. 6. History of pacemaker/ICD. 7. Peripheral vascular disease. 8. History of polycythemia vera. 9. History of lipoma. 10. History of squamous cell carcinoma of left ear. 11. History of lymphoma. 12. History of gout. 13. History of thrombocytopenia. 14. History of COPD. MEDICATIONS: The patient is unsure of what medications he takes. He is taking morphine as needed. He has not been taking his torsemide as he states he has not had any swelling or edema. ALLERGIES: VYTORIN, SIMVASTATIN, BETA-BLOCKERS. SOCIAL HISTORY: The patient lives at home with his , Julieth, who is his healthcare proxy. He recently had a son from complications related to throat cancer. No history of smoking. Rare alcohol use. No illicit drug use. 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 FAMILY HISTORY: Mother at age 96 from dementia. Father from coronary artery disease. Brothers with coronary artery disease. REVIEW OF SYSTEMS: A 14-point review of systems as mentioned in the HPI, otherwise negative. PHYSICAL EXAMINATION GENERAL: No acute distress, resting comfortably with his and daughter at the bedside. VITAL SIGNS: Temp is 96.4, pulse rate 87, respiratory rate 17, oxygen saturation 96% on room air, blood pressure 213/121. HEENT: Head: Normocephalic. Pupils are equal and reactive. Anicteric. Oropharynx: Mucous membranes are moist. NECK: Supple. No lymphadenopathy. RESPIRATORY: Diminished breath sounds. No wheezes, rhonchi or rales. No increased work of breathing. CARDIAC: Regular rate and rhythm. Soft systolic murmur heard throughout. ABDOMEN: Soft, nontender, nondistended. EXTREMITIES: No clubbing, cyanosis, or edema. +1 DPs. NEUROLOGICAL: Alert and oriented x3. No neurologic deficits. LABORATORY DATA/IMAGING DATA: The patient did not have any laboratory data or imaging data. ASSESSMENT AND PLAN: 1. This is an 83-year-old male with past medical history of coronary artery disease, ischemic cardiomyopathy, who was enrolled in hospice care at home and was unable to get his pain symptoms under control with oral medications. The patient is now getting admitted as inpatient hospice and going to be placed on a morphine drip and comfort care measures ordered as well. The family ideally would like him to get to the hospice residence. I have started the patient on a morphine drip with Ativan as needed, atropine drops as well including a bowel regimen. I put in for a social work consult and a career placement specialist consult. I also sent an e-mail to Dr. Salde notifying of the patient's admission and his request for a residence if a bed is available and he is stable to be transferred there. 2. FEN. Place the patient on a regular, unrestricted diet. 3. DVT prophylaxis. The patient is comfort measures only. It is not indicated at this situation. 4. MOLST form, the patient is a DNR/DNI with comfort measures only and confirmed on this MOLST form. PATIENT TIME: Greater than 60 minutes were spent doing the history and physical , more than half of the time was spent in direct patient contact. [id number]/[facility] #: [id number] RAGHAV
[2018-03-11] MEDS ORDERED: Morphine PCA ADULT* 5 MG/ML 30 ML PCA SCH ×3 (05:39→21:18)
--- NOTE | 2018-03-11 11:52 | PN ---
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 He was either coughing or vomiting up thick yellow sputum and appeared scared when doing so. He acknowledged my presence and tried to speak but was unable to get out any words. Objective Active Medications: Atropine Sulfate (Atropine 1% (Oral/Sl)*) 2 drop SL Q2H PRN PRN Reason: Terminal Secretions Diphenhydramine HCl (Benadryl Po*) 25 mg PO Q4H PRN PRN Reason: ITCHING Last Admin: 03/11/18 01:44 Dose: 25 mg Docusate Sodium (Colace Cap*) 200 mg PO DAILY PRN PRN Reason: CONSTIPATION Morphine Sulfate (Morphine Java [id number] Software Engineer Adult* 5 Mg/Ml) 30 mls @ 0 mls/hr MEDIATION COMMISSIONER .change Q24H BASHIR; Protocol Lorazepam (Ativan Inj*) 1 mg IV PUSH Q2HR PRN PRN Reason: AGITATION Morphine Sulfate (Morphine Inj ((Syringe))*) 4 mg IV Q1H PRN PRN Reason: Pain or Shortness of Breath Naloxone HCl (Narcan*) 0.08 mg IV PUSH .Q2MIN PRN PRN Reason: OVERSEDATION Ondansetron HCl (Zofran Inj*) 4 mg IV Q4H PRN PRN Reason: NAUSEA/VOMITING Senna (Senokot Tab*) 2 tab PO DAILY PRN PRN Reason: CONSTIPATION Vital Signs - 8 hr 03/11/18 03/11/18 03/11/18 04:00 05:00 06:00 Respiratory 4 17 5 Rate 03/11/18 03/11/18 03/11/18 07:00 07:24 08:00 Respiratory 0 5 7 Rate Oxygen Devices in Use Now: None Appearance: Elderly male sitting up in bed, in mild respiratory distress Eyes: No Scleral Icterus Respiratory: - - tachypnic, very wet gurgling respirations Cardiovascular: No Edema, - - RRR Abdominal: NL Sounds; No Tenderness; No Distention Extremities: No Clubbing, Cyanosis Skin: No Nodules or Sclerosis Neurological: - - awakens when in distress Assess/Plan/Problems-Billing 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 I saw the patient when he was acutely in distress. It is unclear he would be able to even transfer to the hospice residence. He was offered a bed. Will continue on morphine drip and if he stabilizes can consider d/c to hospice residence tomorrow with morphine drip. Continue supportive care.
[2018-03-11] MEDS ORDERED: Scopolamine 1.5 mg* PATCH TRANSDERM SCH (22:00)
--- NOTE | 2018-03-12 05:51 | PN ---
Progress Note - Progress Note Date of Service: 03/12/18 Note: Patient with ICD on comfort measures. Daughter does not believe it was ever turned off. Will place magnet on chest for now. Recommend follow up in AM to have ICD turned off.
[2018-03-12] MEDS: Morphine ORAL CONCENTRATE* 5 MG/0.25 ML ORAL.SYRIN SL PRN ×3 (09:12→14:50)
--- NOTE | 2018-03-12 15:01 | PN ---
Progress Note - Progress Note Date of Service: 03/12/18 Note: Asked to see this patient and his family for evaluation for transport to hospice residence. The patient is unresponsive, with stable VS, no evidence of discomfort or distress, and now maintained on SL MSO4, having had his IV MSO4 drip discontinued. Cor RRR and lungs with diffuse rhonchi and UA secretions but no respiratory distress. He has cool feet but no mottling or cyanosis. His felt his face was flushed but there was no blanching or obvious erythema. His ICD was deactivated just prior to my arrival. The patient's and daughter were present, and agreed to the transfer to [facility]. He has not had any po fluid intake for two days, but was getting IV drip until last night. I anticipate a prognosis of a week to 10 days at most, which I shared with the family. They are aware of payment requirements for the residence. Dr. Reyes agreed to do the discharge summary and send medications to [facility] for the family to pickler helper.
[2018-03-14] MEDS ORDERED: Scopolamine PATCH Remove* 1 NOTE MISC PATCH OFF SCH (22:00)
== END 2018-03-12 15:00 | disposition hospice, inpatient (51) | DRG 198 ==
LOC: ED 22:01 → ICU 23:34
PROVIDERS: ADMIT Pediatrics; ATTEND Internal Medicine
DX: R07.9 Chest pain, unspecified (principal); I13.0 Hypertensive heart and chronic kidney disease with heart failure and stage 1 through stage 4 chronic kidney disease, or unspecified chronic kidney disease; I25.10 Atherosclerotic heart disease of native coronary artery without angina pectoris; I25.5 Ischemic cardiomyopathy; I48.91 Unspecified atrial fibrillation; N18.9 Chronic kidney disease, unspecified; I73.9 Peripheral vascular disease, unspecified; Z66 Do not resuscitate; I50.9 Heart failure, unspecified; Z51.5 Encounter for palliative care; M10.9 Gout, unspecified; E78.00 Pure hypercholesterolemia, unspecified; G47.30 Sleep apnea, unspecified; F32.9 Major depressive disorder, single episode, unspecified; J44.9 Chronic obstructive pulmonary disease, unspecified; Z88.8 Allergy status to other drugs, medicaments and biological substances; Z80.8 Family history of malignant neoplasm of other organs or systems; Z82.0 Family history of epilepsy and other diseases of the nervous system; Z95.1 Presence of aortocoronary bypass graft; Z95.5 Presence of coronary angioplasty implant and graft; Z85.72 Personal history of non-Hodgkin lymphomas; Z85.828 Personal history of other malignant neoplasm of skin; Z82.49 Family history of ischemic heart disease and other diseases of the circulatory system; Z95.810 Presence of automatic (implantable) cardiac defibrillator; I25.2 Old myocardial infarction; Z86.718 Personal history of other venous thrombosis and embolism; Z87.01 Personal history of pneumonia (recurrent); R06.03 Acute respiratory distress
CPT/HCPCS: 99285; A9270-GY; J1170; J2270; J2405